=== PATIENT | male | born 1980 | race Caucasian/White ===

== ENCOUNTER 2018-04-17 06:44 | Inpatient (IN) ==
[2018-04-17] MEDS ORDERED: Bupivacaine/Epinephrine Inj 0.25% 50 ML Vial ONE (07:20)
[2018-04-17] MEDS ORDERED: Metoprolol Tartrate 25 MG Tablet PO ONE (07:30)
[2018-04-17] MEDS ORDERED: Sodium Chlor 0.9% Inj 500 ML IV.CONT ONE (07:30)
[2018-04-17] MEDS ORDERED: Chlorhexidine Gluconate 2% 1 Pack (2 Cloths) TOPICAL ONE (07:30)
[2018-04-17] MEDS ORDERED: ceFAZolin 2 GM Premix Inj 2 GM/50 ML PIGGYBACK IV.SIG ONE (08:00)
[2018-04-17] MEDS ORDERED: Neostigmine Inj 5 MG/5 ML Syringe IV.PUSH ONE (10:12)
[2018-04-17] MEDS ORDERED: Glycopyrrolate Inj 1 MG/5 ML Syringe IV.PUSH ONE (10:12)
[2018-04-17] MEDS ORDERED: Lidocaine PF 1% Inj 5 ML Syringe OTHER ONE (10:12)
[2018-04-17] MEDS ORDERED: Naloxone Inj 0.4 MG/ML Vial IV.PUSH PRN (11:39)
[2018-04-17] MEDS ORDERED: Post-op Orders (for Pharmacy) OTHER ONE (11:39)
[2018-04-17] MEDS: Ketorolac Inj 30 MG/ML (IVP) Vial IV.PUSH SCH ×3 (11:45→23:16)
--- NOTE | 2018-04-17 11:53 | P.OP ---
- Preoperative Diagnosis (1) Diverticulitis large intestine - Postoperative Diagnosis (1) Diverticulitis large intestine Date of procedure: 04/17/18 Procedure: Laparoscopic assisted diverting ileostomy Anesthesia: MERLIN Surgeon: Pierre Livingston MD Doctor Of Naprapathic Medicine: Lucille CHRISTIANSON Estimated blood loss (mL): 5 Pathology: none sent Operation and Findings: Operative findings: inflamed indurated sigmoid colon. No intraabdominal perforation. To the operating room placed in supine position. General endotracheal anesthesia was induced and the abdomen is prepped and draped in usual sterile fashion. Surgical timeout was performed to verify correct patient procedure and site. Local anesthetic was injected in skin and subcutaneous tissue and left upper abdomen and a 5 mm incision made. Laparoscope was directly inserted into the abdomen through the Optiview trocar and the end was insufflated to 15 mmHg with CO2 gas which patient tolerated well. Another 5 mm port was placed in the epigastrium and in the left midabdomen. Attention was turned to the left lower quadrant of the sigmoid colon was noted to be inflamed and indurated. There is no exudate or purulent fluid in the abdomen. I proceeded with identified the cecum and ileocecal valve approximately 10-15 cm from the ileocecal valve at a mobile portion of the ileum it was grasped with a locking grasper. Laparoscopic equipment was removed. I had a site marked previously in the right lower abdomen I created a circular skin incision dissected through subcutaneous tissue with electrocautery. The anterior rectus fascia was incised in a cruciate fashion the right, the rectus muscle divided, and posterior rectus sheath sharply incised. 2 fingers were easily able to enter the ostomy site. The previously identified portion of terminal ileum was brought up through the ostomy site and secured in place with the sophy through a small hole made in the mesentery. The ileum was then opened approximately one third across its diameter and both ends of the loop were matured in Christina fashion with 3-0 Vicryl suture. Sterile appliance was applied. Skin incision was closed with subcu 4-0 Monocryl Dermabond. Patient tolerated procedure well was excellent taken to PACU in stable condition.
[2018-04-17] MEDS ORDERED: *morphine SULFATE 10 MG/ML PERIprocedure ONLY ONE ×3 (12:10→12:33)
[2018-04-17] MEDS ORDERED: fentaNYL Citrate Inj 100 MCG/2 ML Ampul ONE (12:25)
[2018-04-17] MEDS ORDERED: *HYDROmorphone PF Inj 1 MG/ML Ampul PERIprocedural Use ONLY ONE (12:41)
--- NOTE | 2018-04-17 13:55 | P.PNWCN ---
Wound Care Nurse Consult Description: Received New ostomy teaching for RLQ Communicated with: JADYN Donahue same day surgery PACU,JADYN Pearce [address] [place] [address]. Recommendation: 1. Please empty pouch when 1/3 to 1/2 full 2. Change ileostomy appliance every 3 to 5 days or as needed if leaking or dislodged 3. Do not reinforce ostomy appliance with tape if leaking, please change ostomy appliance using 4 inch cut to fit colostomy kit available through misogram only.Please use adaptor provided in kit. 4. Please include adi with in appliance. 5. Please encourage patient to read education booklet provided in kit entitled " What to Expect After Ileostomy Surgery" 6. Patient will need home health care for additional teaching at home. Bowel Diversion Stoma - Bowel Stoma Right Lower Abdomen Stoma Diameter: 32 (~32mm) Loop Supporting Adi: Yes (100mm) Collection Device: Cut to Fit Wafer Wafer Size: 4 Inch Cut to Fit 100mm - Additional Information Additional Information: Patient is in Post anesthesia care unit, Education kit was give to nurse to be brought with patient to med surg floor.Patient is still groggy and not teachable at this moment.Stoma was visualized through transparent pouch and appears, red, round, and protruding, with [address]. Stoma measures ~ 1 1/4 inches or ~32mm in diameter. There is a 4 inch cut to fit colostomy appliance in place to accommodate 100 mm adi. Appliance has adaptor in place so that the Abdomen may be protected against pressure when resealing appliance.
[2018-04-17] MEDS: metroNIDAZOLE 500 MG Tablet PO SCH ×2 (14:24→21:07)
[2018-04-17] MEDS: Ciprofloxacin 500 MG Tablet PO SCH (21:07)
[2018-04-17] MEDS ORDERED: Melatonin 5 MG Tablet PO PRN (23:55)
[2018-04-18] MEDS: Ketorolac Inj 30 MG/ML (IVP) Vial IV.PUSH SCH ×2 (05:51→11:48)
[2018-04-18] MEDS: metroNIDAZOLE 500 MG Tablet PO SCH (05:52)
[2018-04-18 06:22] LABS: Baso % (Auto) 0.3 % (0.0-2.0); Hematocrit 38.8 % (39.0-51.0); Lymph # (Auto) 1.5 th/mm3 (1.0-4.8); Lymph % (Auto) 11.6 % (9.0-44.0); Mean Corpuscular HGB Conc 33.4 % (32.0-36.0); Mean Corpuscular Hemoglobin 29.4 pg (27.0-34.0); Mean Corpuscular Volume 87.9 fL (80.0-100.0); Mean Platelet Volume 9.3 fL (7.0-11.0); Mono # (Auto) 0.8 th/mm3 (0.0-0.9); Mono % (Auto) 6.3 % (0.0-8.0); Neut # (Auto) 10.8 th/mm3 (1.8-7.7); Neut % (Auto) 81.8 % (16.0-70.0); Platelet Count 257 th/mm3 (150-450); Red Blood Count 4.42 mil/mm3 (4.50-5.90); Red Cell Distribution Width 13.8 % (11.6-17.2); White Blood Count 13.2 th/mm3 (4.0-11.0)
[2018-04-18 08:57] VITALS: RESP 16
[2018-04-18] MEDS: Ciprofloxacin 500 MG Tablet PO SCH (10:18)
--- NOTE | 2018-04-18 11:13 | P.DCO ---
- Diagnosis (1) Ileostomy, has currently Status: Acute (2) Diverticulitis large intestine Status: Acute - Home Health Nursing Order: Medical education, Wound care and dressing changes Instructions: Please assist patient with learning how to manage the ileostomy; also will need ileostomy supplies - Case Management Consult Case Management Consult-Home Health: Yes - Certification I have seen patient Thad Bland on 04/18/18. My clinical findings support the need for the requested home health care services because: Limited ability to care for self I certify that my clinical findings support that this patient is homebound because: Post-op weakness (Underwent surgery on 17 April and needs initial assistance at home. ) Attestation/Additional Detail: I have seen the patient and recommend the orders provided. (2) Diverticulitis large intestine Qualifiers: Diverticulitis bleeding: without bleeding Diverticulitis complication: without perforation or abscess Qualified Code(s): K57.32 - Diverticulitis of large intestine without perforation or abscess without bleeding
--- NOTE | 2018-04-18 11:27 | P.PNGS ---
Subjective Patient reports: no new complaints, feels better, still having pain, pain is less, tolerating liquids well, voiding w/o difficulty, flatus (He states he feels better than before surgery with less LLQ pain; is anxious to go home. ) Physical Exam Vital signs: Vital Signs 04/17/18 12:00 04/17/18 12:15 04/17/18 12:29 Temperature 99.2 F Pulse Rate 73 74 Respiratory Rate 18 22 16 Blood Pressure 139/90 136/79 Pulse Oximetry 94 L 93 L 04/17/18 12:30 04/17/18 12:45 04/17/18 13:00 Temperature Pulse Rate 81 95 H 97 H Respiratory Rate 21 18 20 Blood Pressure 140/83 136/83 136/83 Pulse Oximetry 94 L 93 L 93 L 04/17/18 13:12 04/17/18 14:24 04/17/18 14:54 Temperature 98.3 F Pulse Rate 90 Respiratory Rate 20 18 18 Blood Pressure 136/83 Pulse Oximetry 93 L 04/17/18 16:00 04/17/18 18:58 04/17/18 20:00 Temperature 97.4 F L 97.8 F Pulse Rate 101 H 78 Respiratory Rate 17 18 20 Blood Pressure 140/76 146/66 H Pulse Oximetry 94 L 94 L 04/18/18 00:00 04/18/18 03:58 04/18/18 08:00 Temperature 97.9 F 98.3 F 97.9 F Pulse Rate 85 89 74 Respiratory Rate 20 20 16 Blood Pressure 145/85 H 146/77 H 128/70 Pulse Oximetry 94 L 93 L 95 Intake & Output 04/17/18 04/18/18 04/18/18 18:59 06:59 18:59 Intake Total 1250 / 1250 1000 / 1000 1000 / 1000 Output Total 120 / 120 Balance 1130 / 1130 1000 / 1000 1000 / 1000 Weight 102.7 kg 104.7 kg Intake: IV 1250 / 1250 1000 / 1000 1000 / 1000 LR 1000 mL Inj 1,000 ML @ 100 1000 / 1000 1000 / 1000 1000 / 1000 mls/hr IV.CONT .Q10H [facility] Rx#: [id number] Ofirmev Inj 1,000 mg In 100 ml 100 / 100 @ 400 mls/hr IV.[facility] Rx#:[id number] Ancef 2 GM Premix Inj 2 gm In 50 / 50 50 ml @ 100 mls/hr [facility] Rx#:[id number] Flagyl 500 MG Inj 100 ML @ 100 100 / 100 mls/hr IV.SIG [facility] Rx#: [id number] Output: Urine 100 / 100 Estimated Blood Loss Other: # Voids 1 Weight On Admission 102.7 kg - Routine Abdominal Exam Present: soft Comments: Post-op incisional tenderness; otherwise benign. Results - Labs 04/18/18 06:03 Laboratory Results - last 24 hr 04/18/18 06:03 WBC 13.2 H RBC 4.42 L Hgb 13.0 Hct 38.8 L MCV 87.9 MCH 29.4 MCHC 33.4 RDW 13.8 Plt Count 257 MPV 9.3 Neut % (Auto) 81.8 H Lymph % (Auto) 11.6 [place] % (Auto) 6.3 Eos % (Auto) 0.0 Baso % (Auto) 0.3 Neut # (Auto) 10.8 H Lymph # (Auto) 1.5 [place] # (Auto) 0.8 Eos # (Auto) 0.0 Baso # (Auto) 0.0 WBC Differential . Differential Comment Auto diff final Assessment and Plan - Assessment (1) Diverticulitis large intestine Code(s): K57.32 - Diverticulitis of large intestine without perforation or abscess without bleeding Status: Acute Plan: He will be discharged today and will see Dr. Livingston within the next 10 days. [facility] will be ordered for care of the ileostomy. (1) Diverticulitis large intestine Qualifiers: Diverticulitis bleeding: without bleeding Diverticulitis complication: without perforation or abscess Qualified Code(s): K57.32 - Diverticulitis of large intestine without perforation or abscess without bleeding
[2018-04-18 14:02] VITALS: BP 134/67; PULSE 97; TEMP 98.7; O2SAT 94
== END 2018-04-18 15:33 | disposition home health service (06) | DRG 331 ==
LOC: HSDI 06:44 → N07 13:49
PROVIDERS: ADMIT Surgery; ATTEND Surgery
CPT/HCPCS: 85025; 94150; 94664; J0131; J0690; J1100; J1170; J1885; J2250; J2270; J2405; J2550; J2704; J2710; J3010; J7120

== ENCOUNTER 2018-04-19 04:53 | Inpatient (IN) ==
[2018-04-19] MEDS ORDERED: Acetaminophen 325 MG Tablet PO PRN (11:45)
[2018-04-19] MEDS ORDERED: Morphine Inj 4 MG/ML Vial IV.PUSH ONE ×2 (12:15→17:30)
--- NOTE | 2018-04-19 12:42 | P.CONGI ---
History of Present Illness Consult date: 04/19/18 Requesting physician: Jamaica Quach Consult reason: hematemesis Chief complaint: upper GI bleed, intractable vomiting, stqatus post History of Present Illness: 37-year-old male status post laparoscopic ileostomy 2 days ago for indurated diverticulitis was discharged yesterday. He presented to [facility] today for nausea, vomiting and abdominal pain. He has been unable to tolerate anything by mouth. CT of the abdomen/pelvis indicate scattered air-fluid levels most suggestive of an ileus and large air-fluid level present in the stomach. Patient declined NG tube at [facility]. He reports hematemesis as well as blood in his ileostomy bag. No bowel movements. He is belching and retching. WBC 13.7, hemoglobin 13.0, hematocrit 38.9. No fevers. On exam he appears uncomfortable. His abdomen is distended. No bowel sounds are appreciated. Diffuse tenderness to palpation. Right lower quadrant colostomy bag which is empty. <Betsy Marcano - Last Filed: 04/19/18 12:42> PMFSH - History History Provided By: Patient, Family Member - Medical History Medical History: Medical History (Last Updated 04/19/18 @ 05:27 by Linda Quiroz RN) A-fib COPD (chronic obstructive pulmonary disease) Diverticulitis IBS (irritable bowel syndrome) Ileostomy in place Kidney stones PICC (peripherally inserted central catheter) in place SVT (supraventricular tachycardia) - Surgical History Surgical History: Surgical History (Last Reviewed 04/19/18 @ 05:26 by Linda Quiroz RN) H/O colonoscopy History of esophagogastroduodenoscopy (EGD) History of tonsillectomy Hx of appendectomy - Family History Family History: Family History (Last Reviewed 04/16/18 @ 13:34 by Christine Cruz RN) Mother Kidney stone Father Heart disease - Tobacco History Second Hand Smoke Exposure: No Smoking Status: Current every day smoker Tobacco Type: Cigarettes - Alcohol History How Often Do You Have a Drink Containing Alcohol: Never - Substance Use History Substance History: No History of Abuse <Betsy Marcano - Last Filed: 04/19/18 12:42> - Medical History Medical History: Medical History (Last Updated 04/19/18 @ 05:27 by Linda Quiroz, JADYN) A-fib COPD (chronic obstructive pulmonary disease) Diverticulitis IBS (irritable bowel syndrome) Ileostomy in place Kidney stones PICC (peripherally inserted central catheter) in place SVT (supraventricular tachycardia) - Surgical History Surgical History: Surgical History (Last Reviewed 04/19/18 @ 05:26 by Linda Quiroz, RN) H/O colonoscopy History of esophagogastroduodenoscopy (EGD) History of tonsillectomy Hx of appendectomy - Family History Family History: Family History (Last Reviewed 04/16/18 @ 13:34 by Christine Cruz RN) Mother Kidney stone Father Heart disease <Herve Gregg E - Last Filed: 04/19/18 20:59> Medications and Allergies Active Medications: Active Medications Acetaminophen (Tylenol) 650 mg PO Q4H PRN PRN Reason: Temp > 100.4 Pantoprazole Sodium 80 mg/ (Sodium Chloride) 100 mls @ 10 mls/hr IV.CONT Q10H [facility]EE Potassium Chloride 10 meq/ (Sodium Chloride) 1,005 mls @ 100 mls/hr IV.CONT .Q10H3M TEE Ondansetron HCl (Zofran Inj) 4 mg IV.PUSH Q6H PRN PRN Reason: NAUSEA OR VOMITING Sodium Chloride (Ns Flush) 2 ml IV.FLUSH BID TEE Sodium Chloride (Ns Flush) 2 ml IV.FLUSH PRN PRN PRN Reason: FLUSH AFTER USING IV ACCESS <Betsy Marcano C - Last Filed: 04/19/18 12:42> Active Medications: Active Medications Acetaminophen (Tylenol) 650 mg PO Q4H PRN PRN Reason: Temp > 100.4 Pantoprazole Sodium 80 mg/ (Sodium Chloride) 100 mls @ 10 mls/hr IV.CONT Q10H TEE Last Infusion: 04/19/18 19:29 Dose: Infused Potassium Chloride 10 meq/ (Sodium Chloride) 1,005 mls @ 100 mls/hr IV.CONT .Q10H3M TEE Last Admin: 04/19/18 13:05 Dose: 100 mls/hr Piperacillin/Tazobactam/Dextrose (Zosyn 3.375 Gm Premix) 3.375 gm in 50 mls @ 100 mls/hr IV.SIG Q6H TEE Last Infusion: 04/19/18 19:30 Dose: Infused Melatonin (Melatonin) 5 mg PO HS PRN PRN Reason: SLEEP Morphine Sulfate (Morphine Inj) 4 mg IV.PUSH Q4H PRN PRN Reason: PAIN SCALE 6 TO 10 Ondansetron HCl (Zofran Inj) 4 mg IV.PUSH Q6H PRN PRN Reason: NAUSEA OR VOMITING Last Admin: 04/19/18 13:05 Dose: 4 mg Sodium Chloride (Ns Flush) 2 ml IV.FLUSH BID TEE Sodium Chloride (Ns Flush) 2 ml IV.FLUSH PRN PRN PRN Reason: FLUSH AFTER USING IV ACCESS <Herve Gregg - Last Filed: 04/19/18 20:59> Allergies Allergy/AdvReac Type Severity Reaction Status Date / Time No Known Allergies Allergy Verified 04/19/18 05:23 Home Medications Medication Instructions Recorded Confirmed Type varenicline [Chantix] 0.5 mg PO BID 04/16/18 04/19/18 History pantoprazole [Protonix] 40 mg PO DAILY 04/19/18 04/19/18 History Exam Vital signs: Vital Signs 04/19/18 11:29 Temperature 97.4 F L Pulse Rate 77 Respiratory Rate 19 Blood Pressure 161/91 H Pulse Oximetry 97 <Betsy Marcano - Last Filed: 04/19/18 12:42> Vital signs: Vital Signs 04/19/18 11:29 04/19/18 16:00 Temperature 97.4 F L 97.9 F Pulse Rate 77 70 Respiratory Rate 19 16 Blood Pressure 161/91 H 163/79 H Pulse Oximetry 97 93 L Intake & Output 04/19/18 04/19/18 04/20/18 06:59 18:59 06:59 Intake Total 150 / 150 Output Total 900 / 900 200 / 200 Balance -900 / -900 -50 / -50 Weight 104.326 kg Intake: IV 150 / 150 Protonix Inj 80 MG In NS Inj 100 / 100 100 ML @ 10 mls/hr IV.CONT Q10H [facility] Rx#:[id number] Zosyn 3.375 GM Premix 3.375 gm 50 / 50 In 50 ml @ 100 mls/hr IV.SIG Q6H [facility] Rx#:[id number] Output: Stool Amount (Stoma) 200 / 200 Pre-Hospital: Right Lower 200 / 200 Abdomen Gastric Drainage 700 / 700 200 / 200 Right Nare Nasogastric Tube 700 / 700 200 / 200 Other: Date of Last Bowel Movement 04/19/18 Weight On Admission 104.326 kg <Herve Gregg - Last Filed: 04/19/18 20:59> Results - Imaging Impressions Abdomen X-Ray 04/19/18 00:00 CONCLUSION: 1. Stable diffuse mild small bowel distention most consistent with adynamic ileus versus partial distal small bowel obstruction. <Herve Gregg - Last Filed: 04/19/18 20:59> Assessment and Plan (1) Nausea & vomiting Status: Acute Code(s): R11.2 - Nausea with vomiting, unspecified (2) Acute upper gastrointestinal bleeding Status: Acute Code(s): K92.2 - Gastrointestinal hemorrhage, unspecified (3) Ileus, postoperative Status: Acute Code(s): K91.89 - Other postprocedural complications and disorders of digestive system; K56.7 - Ileus, unspecified (4) Ileostomy, has currently Status: Acute Code(s): Z93.2 - Ileostomy status - Plan 1.Nausea, vomiting and abdominal pain. Status post laparoscopic-assisted diverting ileostomy on 04/17/2018. Imaging suggestive of postoperative ileus. 2. Hematemesis. Most likely Yashira-Perez tear. Hemoglobin 13.0/hematocrit 38.9. Plan: -NG tube is strongly recommended to patient. He is declining at present but agreed to consider it. -Pantoprazole drip -N.p.o. -IV fluids -Antiemetics and analgesics per attending -Monitor H&H -Recommendations to follow Patient was seen and examined by myself and Dr. Gregg and this note is written on his behalf Betsy Marcano PA-C [phone] <Betsy Marcano - Last Filed: 04/19/18 12:42> (1) Nausea & vomiting Status: Acute Code(s): R11.2 - Nausea with vomiting, unspecified (2) Acute upper gastrointestinal bleeding Status: Acute Code(s): K92.2 - Gastrointestinal hemorrhage, unspecified (3) Ileus, postoperative Status: Acute Code(s): K91.89 - Other postprocedural complications and disorders of digestive system; K56.7 - Ileus, unspecified (4) Ileostomy, has currently Status: Acute Code(s): Z93.2 - Ileostomy status - Attending Attestation Patient seen and examined Agree with above Continue with current supportive care Monitor labs EGD if actively bleeding or after a few days seeing that he is actually postoperative day #2 <Herve Gregg E - Last Filed: 04/19/18 20:59>
[2018-04-19] MEDS: Potassium Chloride Inj 10 MEQ in Sod Chloride 0.9% Inj 1,000 ML IV.CONT SCH ×2 (13:05→21:53)
[2018-04-19] MEDS: Pantoprazole Inj 80 MG in Sodium Chlor 0.9% Inj 100 ML IV.CONT SCH ×3 (13:06→22:01)
--- NOTE | 2018-04-19 13:51 | XR ---
EXAM DATE: 04/19/2018 12:53 PM EST AGE/SEX: 37 years / Male INDICATIONS: Evaluate for ileus CLINICAL DATA: This is the patient's initial encounter. Patient reports that signs and symptoms have been present for 3 days and indicates a pain score of 8/10. MEDICAL/SURGICAL HISTORY: . Cardiovascular disease. Irritable bowel syndrome. Renal calculi Di verticulitis. . Appendectomy. colostomy COMPARISON: [facility], CT ABDOMEN & PELVIS W/O CONTRAST, 04/19/2018. . FINDINGS: Multiple loops of air-filled distended small bowel throughout the abdomen measuring up to 3.9 cm. Po ssibility of bowel gas in the colon. No gross pneumatosis or free air. Remainder of exam is unchanged . CONCLUSION: 1. Stable diffuse mild small bowel distention most consistent with adynamic ileus versus partial dis yazmin small bowel obstruction. Electronically signed by: Steven Rainey MD Board Certified Radiologist 04/19/2018 1:50 PM EST
--- NOTE | 2018-04-19 18:04 | P.HP ---
History of Present Illness Service: FHCP-hospitalist Primary Care Physician: UNKNOWN Chief Complaint: upper GI bleed History of Present Illness: 37-year-old male status post laparoscopic ileostomy 2 days ago for indurated diverticulitis was discharged yesterday. He presented to [place] ER today for nausea, vomiting and abdominal pain. He has been unable to tolerate anything by mouth. CT of the abdomen/pelvis indicate scattered air-fluid levels most suggestive of an ileus and large air-fluid level present in the stomach. Patient declined NG tube at [place]. He reports hematemesis as well as blood in his ileostomy bag. No bowel movements. He is belching and retching. WBC 13.7, hemoglobin 13.0, hematocrit 38.9. No fevers. On exam now appears more comfortable. His abdomen is distended. No bowel sounds are appreciated. Diffuse tenderness to palpation. Right lower quadrant colostomy bag which is empty. Patient did allow NG tube with large amount obtained bloody fluid. Patient also received morphine and starting to feel a little better. In review he was on Zosyn 4 times a day will continue and GI has consulted . - Diagnosis (1) Acute upper gastrointestinal bleeding (2) Nausea & vomiting (3) Diverticulitis large intestine (4) Ileus, postoperative Inpatient Certification: I certify that the inpatient services were ordered in accordance with Medicare regulations governing the order. This includes certification that hospital inpatient services are reasonable and necessary and in the case of services not specified as inpatient-only under 42 CFR 419.22(n), that they are appropriately provided as inpatient services in accordance to with the 2-midnight benchmark under 43 CFR 412.3(e) Estimated Total Length of Stay (Days): 2 Plans for Post Hospital Care: Home Review of Systems All other systems reviewed negative except as stated in [facility] - History History Provided By: Patient - Medical History Medical History: Medical History (Last Reviewed 04/19/18 @ 18:00 by Rolf Curry MD) A-fib COPD (chronic obstructive pulmonary disease) Diverticulitis IBS (irritable bowel syndrome) Ileostomy in place Kidney stones PICC (peripherally inserted central catheter) in place SVT (supraventricular tachycardia) - Surgical History Surgical History: Surgical History (Last Reviewed 04/19/18 @ 18:00 by Rolf Curry MD) H/O colonoscopy History of esophagogastroduodenoscopy (EGD) History of tonsillectomy Hx of appendectomy - Family History Family History: Family History (Last Reviewed 04/16/18 @ 13:34 by Christine Cruz RN) Mother Kidney stone Father Heart disease - Tobacco History Second Hand Smoke Exposure: Yes Tobacco Use In Past 30 Days: Yes Smoking Status: Current every day smoker Tobacco Type: Cigarettes - Alcohol History How Often Do You Have a Drink Containing Alcohol: Never - Substance Use History Substance History: No History of Abuse - Travel History Recent Travel in the USA Within the Last 8 Weeks: No Recent Travel Out of the Country Within the Last 8 Weeks: No - Immunization History Tetanus Immunization: <5 Years Hx Influenza Vaccine This Season: No Medications and Allergies Active Medications: Active Medications Acetaminophen (Tylenol) 650 mg PO Q4H PRN PRN Reason: Temp > 100.4 Pantoprazole Sodium 80 mg/ (Sodium Chloride) 100 mls @ 10 mls/hr IV.CONT Q10H PENDING [facility] TO [facility] Last Admin: 04/19/18 13:06 Dose: 10 mls/hr Potassium Chloride 10 meq/ (Sodium Chloride) 1,005 mls @ 100 mls/hr IV.CONT .Q10H3M PENDING [facility] TO [facility] Last Admin: 04/19/18 13:05 Dose: 100 mls/hr Morphine Sulfate (Morphine Inj) 4 mg IV.PUSH Q4H PRN PRN Reason: PAIN SCALE 6 TO 10 Ondansetron HCl (Zofran Inj) 4 mg IV.PUSH Q6H PRN PRN Reason: NAUSEA OR VOMITING Last Admin: 04/19/18 13:05 Dose: 4 mg Sodium Chloride (Ns Flush) 2 ml IV.FLUSH BID PENDING SALE TO [facility] Sodium Chloride (Ns Flush) 2 ml IV.FLUSH PRN PRN PRN Reason: FLUSH AFTER USING IV ACCESS Allergies Allergy/AdvReac Type Severity Reaction Status Date / Time No Known Allergies Allergy Verified 04/19/18 05:23 Home Medications Medication Instructions Recorded Confirmed Type varenicline [Chantix] 0.5 mg PO BID 04/16/18 04/19/18 History pantoprazole [Protonix] 40 mg PO DAILY 04/19/18 04/19/18 History Exam Vital signs: Vital Signs 04/19/18 11:29 04/19/18 16:00 Temperature 97.4 F L 97.9 F Pulse Rate 77 70 Respiratory Rate 19 16 Blood Pressure 161/91 H 163/79 H Pulse Oximetry 97 93 L Intake & Output 04/18/18 04/19/18 04/19/18 18:59 06:59 18:59 Output Total 900 / 900 Balance -900 / -900 Weight 104.326 kg Output: Stool Amount (Stoma) 200 / 200 Pre-Hospital: Right Lower 200 / 200 Abdomen Gastric Drainage 700 / 700 Right Nare Nasogastric Tube 700 / 700 Other: Date of Last Bowel Movement 04/19/18 Weight On Admission 104.326 kg Narrative: GENERAL: SKIN: Warm and dry. HEAD: Normocephalic. EYES: No scleral icterus. No injection or drainage. NECK: Supple, trachea midline. No JVD or lymphadenopathy. CARDIOVASCULAR: Regular rate and rhythm without murmurs, gallops, or rubs. RESPIRATORY: Breath sounds equal bilaterally. No accessory muscle use. GASTROINTESTINAL: diffuse tenderness no rebound distended MUSCULOSKELETAL: No cyanosis, or edema. BACK: Nontender without obvious deformity. No CVA tenderness. Results - Imaging Impressions Abdomen X-Ray 04/19/18 00:00 CONCLUSION: 1. Stable diffuse mild small bowel distention most consistent with adynamic ileus versus partial distal small bowel obstruction. Caprini VTE Risk Assessment Caprini VTE Risk Assessment: No/Low Risk (score <= 1) Caprini Risk Assessment Model: Point Value = 1 Point Value = 2 Point Value = 3 Point Value = 5 Age 41-60 Minor surgery BMI > 25 kg/m2 Swollen legs Varicose veins or History of unexplained or recurrent spontaneous Oral contraceptives or hormone replacement Sepsis (< 1 month) Serious lung disease, including pneumonia (< 1 month) Abnormal pulmonary function Acute myocardial infarction Congestive heart failure (< 1 month) History of inflammatory bowel disease Medical patient at bed rest Age 61-74 Arthroscopic surgery Major open surgery (> 45 min) Laparoscopic surgery (> 45 min) Malignancy Confined to bed (> 72 hours) Immobilizing plaster cast Central venous access Age >= 75 History of VTE Family history of VTE Factor V Leiden Prothrombin [id number] Lupus anticoagulant Anticardiolipin antibodies Elevated serum homocysteine Heparin-induced thrombocytopenia Other congenital or acquired thrombophilia Stroke (< 1 month) Elective arthroplasty Hip, pelvis, or leg fracture Acute spinal cord injury (< 1 month) Prophylaxis Regimen: Total Risk Factor Score Risk Level Prophylaxis Regimen 0-1 Low Early ambulation 2 Moderate Order ONE of the following: *Sequential Compression Device (SCD) *Heparin 5000 units SQ BID 3-4 Higher Order ONE of the following medications: *Heparin 5000 units SQ TID *Enoxaparin/Lovenox 40 mg SQ daily (WT < 150 kg, CrCl > 30 mL/min) *Enoxaparin/Lovenox 30 mg SQ daily (WT < 150 kg, CrCl > 10-29 mL/min) *Enoxaparin/Lovenox 30 mg SQ BID (WT < 150 kg, CrCl > 30 mL/min) AND/OR *Sequential Compression Device (SCD) 5 or more Highest Order ONE of the following medications: *Heparin 5000 units SQ TID (Preferred with Epidurals) *Enoxaparin/Lovenox 40 mg SQ daily (WT < 150 kg, CrCl > 30 mL/min) *Enoxaparin/Lovenox 30 mg SQ daily (WT < 150 kg, CrCl > 10-29 mL/min) *Enoxaparin/Lovenox 30 mg SQ BID (WT < 150 kg, CrCl > 30 mL/min) AND *Sequential Compression Device (SCD) Assessment and Plan - Assessment (1) Acute upper gastrointestinal bleeding Code(s): K92.2 - Gastrointestinal hemorrhage, unspecified Status: Acute Plan: appears to have UGI bleed ,NG tube placed plan as per GI protonix drip ,follow cbc and add IV fluid (2) Nausea & vomiting Code(s): R11.2 - Nausea with vomiting, unspecified Status: Acute Plan: zofran prn (3) Diverticulitis large intestine Code(s): K57.32 - Diverticulitis of large intestine without perforation or abscess without bleeding Status: Acute Plan: restart zosyn Surgery has been notified (4) Ileus, postoperative Code(s): K91.89 - Other postprocedural complications and disorders of digestive system; K56.7 - Ileus, unspecified Status: Acute Plan: NG tube await surgery to evaluate - Plan further plan as case develops Code Status: full Discussed Condition With: patient (3) Diverticulitis large intestine Qualifiers: Diverticulitis bleeding: without bleeding Diverticulitis complication: without perforation or abscess Qualified Code(s): K57.32 - Diverticulitis of large intestine without perforation or abscess without bleeding
[2018-04-19] MEDS: Piperacil/Tazo 3.375 GM Premix 3.375 GM/50 ML PIGGYBACK IV.SIG SCH (18:54)
[2018-04-19] MEDS: Melatonin 5 MG Tablet PO PRN (21:32)
[2018-04-19] MEDS: Morphine Inj 4 MG/ML Vial IV.PUSH PRN (21:38)
[2018-04-20] MEDS: Piperacil/Tazo 3.375 GM Premix 3.375 GM/50 ML PIGGYBACK IV.SIG SCH ×5 (00:15→23:53)
[2018-04-20] MEDS: Morphine Inj 4 MG/ML Vial IV.PUSH PRN ×5 (01:17→21:44)
[2018-04-20] MEDS: Potassium Chloride Inj 10 MEQ in Sod Chloride 0.9% Inj 1,000 ML IV.CONT SCH ×4 (03:07→17:26)
[2018-04-20 05:55] LABS: Baso # (Auto) 0.1 th/mm3 (0.0-0.2); Eos # (Auto) 0.2 th/mm3 (0.0-0.4); Eos % (Auto) 1.8 % (0.0-4.0); Hematocrit 39.8 % (39.0-51.0); Hemoglobin 13.2 gm/dL (13.0-17.0); Lymph # (Auto) 2.2 th/mm3 (1.0-4.8); Lymph % (Auto) 17.1 % (9.0-44.0); Mean Corpuscular Hemoglobin 29.5 pg (27.0-34.0); Mean Corpuscular Volume 89.5 fL (80.0-100.0); Mean Platelet Volume 9.4 fL (7.0-11.0); Mono # (Auto) 1.2 th/mm3 (0.0-0.9); Mono % (Auto) 9.4 % (0.0-8.0); Neut % (Auto) 70.7 % (16.0-70.0); Platelet Count 285 th/mm3 (150-450); Red Blood Count 4.45 mil/mm3 (4.50-5.90); Red Cell Distribution Width 13.9 % (11.6-17.2); White Blood Count 12.7 th/mm3 (4.0-11.0)
[2018-04-20 06:22] LABS: Albumin 3.4 g/dL (3.4-5.0); Anion Gap 10 meq/L (5-15); Aspartate Aminotransferase 21 U/L (15-37); Blood Urea Nitrogen 16 mg/dL (7-18); Calcium 8.3 mg/dL (8.5-10.1); Carbon Dioxide 25.5 meq/L (21.0-32.0); Chloride 104 meq/L (98-107); Glomerular Filtration Rate 77 mL/min (>89); Glucose,Random 97 mg/dL (74-106); Potassium 3.6 meq/L (3.5-5.1); Sodium 139 meq/L (136-145)
[2018-04-20 06:24] LABS: Alanine Aminotransferase 24 U/L (12-78); Alkaline Phosphatase 79 U/L (45-117); Total Protein 6.7 g/dL (6.4-8.2)
[2018-04-20] MEDS: Pantoprazole Inj 80 MG in Sodium Chlor 0.9% Inj 100 ML IV.CONT SCH ×4 (07:03→18:38)
--- NOTE | 2018-04-20 08:53 | P.PNIM ---
Subjective Interval history: Pt had NGT placed yesterday and had about 800cc of coffee- ground appearing fluid yesterday afternoon Nursing staff reports 200cc out overnight from NGT H/H is stable Pt complains of pain related to the NGT and wants it removed He is quite anxious this morning Feels that his pain is slightly less and that his abdomen is somewhat less distended Pt with some nausea and retching while in was in the room examining the pt with the nurse Physical Exam Vital signs: Last Vital Signs Temp 98 F 04/20/18 00:00 Pulse 93 H 04/20/18 00:00 Resp 20 04/20/18 00:00 BP 157/88 H 04/20/18 00:00 Pulse Ox 93 L 04/20/18 00:00 Narrative: General: NAD, AAOx3 Chest: CTA Cardiac: Regular Abd: Minimal BS, soft mildly distended, ileostomy with some dark liquid noted Ext: No edema Results Labs CBC & Chem 7: 04/23/18 10:05 04/23/18 05:03 Imaging Abdomen X-Ray 04/19/18 00:00 CONCLUSION: 1. Stable diffuse mild small bowel distention most consistent with adynamic ileus versus partial distal small bowel obstruction. CT Abd/pelvis (04/19/18) CONCLUSION: 1. I do not see inflammatory changes in the abdomen. There is mild diverticulosis coli sigmoid colon 2. Colostomy in the right lower quadrant 3. Scattered air-fluid levels most suggestive of an ileus. 4. Large air-fluid level present in the stomach Assessment and Plan Assessment (1) Acute upper gastrointestinal bleeding: Code(s): K92.2 - Gastrointestinal hemorrhage, unspecified Status: Inactive (2) Nausea & vomiting: Code(s): R11.2 - Nausea with vomiting, unspecified Status: Acute (3) Diverticulitis large intestine: Code(s): K57.32 - Diverticulitis of large intestine without perforation or abscess without bleeding Status: Acute (4) Ileus, postoperative: Code(s): K91.89 - Other postprocedural complications and disorders of digestive system; K56.7 - Ileus, unspecified Status: Acute Plan UGI bleed/?Yashira-Perez tear Nausea/vomiting, post-op ileus s/p Lap diverting ileostomy on 04/17/18 - Pt is a 37 y/o male that recently underwent laparoscopic diverting ileostomy on 04/17/18 for indurated diverticulitis. He was discharged on 04/18/18 and was doing well initially. Then on 04/19/18 he presented to [place] ER for nausea, vomiting and abdominal pain. He reported hematemesis as well as blood in his ileostomy bag. He has been unable to tolerate anything by mouth. No bowel movements. He was belching and retching. - CT Abdomen/pelvis (04/19/18) 1. I do not see inflammatory changes in the abdomen. There is mild diverticulosis coli sigmoid colon 2. Colostomy in the right lower quadrant 3. Scattered air-fluid levels most suggestive of an ileus. 4. Large air-fluid level present in the stomach - Abdomen X-Ray (04/19/18) 1. Stable diffuse mild small bowel distention most consistent with adynamic ileus versus partial distal small bowel obstruction. - GI consulted - GS consulted - Patient initially declined NG tube at [place] but this was able to be placed after transfer to [facility]. Pt initially had out about 800cc of dark coffeground fluid per nursing staff. - Overnight on 04/20 he had out about 200cc of dark fluid and some fluid noted in ileostomy - H/H is stable currently - Pt still having nausea and retching today and appears very anxious and wanting to pull out NGT - Chloraseptic spray ordered - Repeat KUB is pending - Ativan 0.5mg Q6H PRN for anxiety - Discussed minimizing narcotics - If repeat KUB without evidence of obstruction could consider a dose of Relistor - Discussed with the pt and nurse attempting to see if pt can tolerating NGT clamping to ambulate today - Will discuss the case further with GI and GS today - Recheck labs in AM - Supportive care Attending Attestation The exam, history, and the medical decision-making described in the above note were completed with the assistance of the mid-level provider. I reviewed and agree with the findings presented. I attest that I had a [id number] encounter with the patient on the same day, and personally performed and documented my assessment and findings in the medical record. Patient examined. Assessment and plan formulated with Jamaica Quach PA-C. I agree with the above. Progress Note: Quality VTE Deep Vein Thrombosis/Pulmonary Embolism Present on Admission: No _ (1) Nausea & vomiting Qualifiers: Vomiting Intractability: Vomiting type: (2) Diverticulitis large intestine Qualifiers: Diverticulitis bleeding: without bleeding Diverticulitis complication: without perforation or abscess Qualified Code(s): K57.32 - Diverticulitis of large intestine without perforation or abscess without bleeding
[2018-04-20] MEDS ORDERED: Phenol 1.4% 180 ML Spray Bottle OROPHARYNG STA (09:03)
[2018-04-20] MEDS: Phenol 1.4% 180 ML Spray Bottle OROPHARYNG PRN ×2 (09:33→15:37)
--- NOTE | 2018-04-20 10:55 | XR ---
EXAM DATE: 04/20/2018 10:49 AM EST AGE/SEX: 37 years / Male INDICATIONS: Vomiting, abdomen pain. CLINICAL DATA: This is the patient's subsequent encounter. Patient reports that signs and symptoms h ave been present for 4 - 6 days and indicates a pain score of 9/10. MEDICAL/SURGICAL HISTORY: . Diverticulitis. Irritable bowel syndrome. Renal calculi. Appendect luis armando. Colostomy. [place]PAR[place]: [facility] [place] 1V KUB, 04/19/2018. [facility], CT ABDOMEN & PELVIS W/O CONTRAST, 04/19/2018. . FINDINGS: There appears to be an ostomy site in the left lower quadrant. There continues to be dilated small b owel measuring up to 4 cm. There is an NG tube in place with its tip just beyond the EG junction. Hector e air is not seen. CONCLUSION: Persistent dilated small bowel. Ileus or obstruction could've this appearance. Electronically signed by: Sanjay Daley MD Board Certified Radiologist 04/20/2018 10:54 AM EST
--- NOTE | 2018-04-20 11:55 | P.PNWCN ---
Wound Care Nurse Consult Description: Patient seen today for new ostomy teaching and new ileostomy assessment. Consult was placed before previous discharge on 04/18 from Doctor Miki. Patient was admitted again on 04/19. Communicated with: JADYN Goldstein [address] [place] [address] Recommendation: 1. Please empty pouch when 1/3 to 1/2 full. 2. Change ileostomy appliance every 3 to 5 days or as needed if leaking or dislodged 3. If appliance is leaking, please apply new two piece 4 inch cut to fit appliance in place. Do not reinforce leaking appliance with tape. 4. Please include adi within ostomy appliance. 5. please monitor stoma for output and appearance. Bowel Diversion Stoma - Bowel Stoma Right Lower Abdomen Stoma Edema: No Stoma Diameter: 32 (~32mm) Stoma Appearance: Dark Red, Protruding, Round Loop Supporting Adi: Yes Collection Device: Two-piece, Cut to Fit Wafer Drainage Description: Liquid, Brown Wafer Size: 4 Inch Cut to Fit 100mm - Additional Information Additional Information: Patient seen on for ileostomy care, teaching and assessment. Patient is laying in bed with NG tube in place. Patient is drowsy, per nurse, patient does have pain medication ordered, but was given Ativan around 0900. Ileostomy stoma was visualized through transparent pouch, and presents as dark red in color, round and protruding with [address]. There is a small amount of brown , liquid output in pouch. Pouch and wafer are dry and intact. Patient is not ready for ostomy teaching at this time. will follow up with patient tomorrow.
--- NOTE | 2018-04-20 12:32 | P.CONGS ---
[facility] Gen Surgery Consult Note Consult date: 04/20/18 Narrative: Mr. Bland underwent diverting loop ileostomy due to 2 mth h/o persistent sigmoid diverticulitis on Friday last week, and discharged home Friday. Soon after getting home he developed abdominal bloating and nausea and then multiple episodes of emesis, some with coffee grounds. He was admitted yesterday and CT a/p showed air fluid levels in the small bowel. He still feels poorly. NGT put out 1100cc since admission. He denies significant abdominal pain. The ileostomy is putting out thin liquid. Review of Systems All other systems reviewed negative except as stated in [facility] - History History Provided By: Patient - Medical History Medical History: Medical History (Last Reviewed 04/19/18 @ 18:00 by Rolf Curry MD) A-fib COPD (chronic obstructive pulmonary disease) Diverticulitis IBS (irritable bowel syndrome) Ileostomy in place Kidney stones PICC (peripherally inserted central catheter) in place SVT (supraventricular tachycardia) - Surgical History Surgical History: Surgical History (Last Reviewed 04/19/18 @ 18:00 by Rolf Curry MD) H/O colonoscopy History of esophagogastroduodenoscopy (EGD) History of tonsillectomy Hx of appendectomy - Family History Family History: Family History (Last Reviewed 04/16/18 @ 13:34 by Christine Cruz RN) Mother Kidney stone Father Heart disease - Tobacco History Second Hand Smoke Exposure: Yes Tobacco Use In Past 30 Days: Yes Smoking Status: Current every day smoker Tobacco Type: Cigarettes - Alcohol History How Often Do You Have a Drink Containing Alcohol: Never - Substance Use History Substance History: No History of Abuse - Travel History Recent Travel in the [place] Within the Last 8 Weeks: No Recent Travel Out of the Country Within the Last 8 Weeks: No - Immunization History Tetanus Immunization: <5 Years Hx Influenza Vaccine This Season: No Medications and Allergies Active Medications: Active Medications Acetaminophen (Tylenol) 650 mg PO Q4H PRN PRN Reason: Temp > 100.4 Pantoprazole Sodium 80 mg/ (Sodium Chloride) 100 mls @ 10 mls/hr IV.CONT Q10H [facility] Last Admin: 04/20/18 07:03 Dose: 10 mls/hr Potassium Chloride 10 meq/ (Sodium Chloride) 1,005 mls @ 100 mls/hr IV.CONT .Q10H3M [facility] Last Admin: 04/20/18 03:07 Dose: 100 mls/hr Piperacillin/Tazobactam/Dextrose (Zosyn 3.375 Gm Premix) 3.375 gm in 50 mls @ 100 mls/hr IV.SIG Q6H [facility] Last Infusion: 04/20/18 05:30 Dose: Infused Lorazepam (Ativan Inj) 0.5 mg IV.PUSH Q6H PRN PRN Reason: ANXIETY Melatonin (Melatonin) 5 mg PO HS PRN PRN Reason: SLEEP Last Admin: 04/19/18 21:32 Dose: 5 mg Morphine Sulfate (Morphine Inj) 4 mg IV.PUSH Q4H PRN PRN Reason: PAIN SCALE 6 TO 10 Last Admin: 04/20/18 10:45 Dose: 4 mg Ondansetron HCl (Zofran Inj) 4 mg IV.PUSH Q6H PRN PRN Reason: NAUSEA OR VOMITING Last Admin: 04/20/18 09:01 Dose: 4 mg Sodium Chloride (Ns Flush) 2 ml IV.FLUSH BID [facility] Last Admin: 04/20/18 08:58 Dose: Not Given Sodium Chloride (Ns Flush) 2 ml IV.FLUSH PRN PRN PRN Reason: FLUSH AFTER USING IV ACCESS Throat Lozenges (Chloraseptic [place]) 2 spray OROPHARYNG Q2H PRN PRN Reason: SORE THROAT Last Admin: 04/20/18 09:33 Dose: 2 spray Allergies Allergy/AdvReac Type Severity Reaction Status Date / Time No Known Allergies Allergy Verified 04/19/18 05:23 Home Medications Medication Instructions Recorded Confirmed Type varenicline [Chantix] 0.5 mg PO BID 04/16/18 04/19/18 History pantoprazole [Protonix] 40 mg PO DAILY 04/19/18 04/19/18 History Exam Vital signs: Vital Signs 04/19/18 16:00 04/19/18 20:00 04/20/18 00:00 Temperature 97.9 F 98.2 F 98 F Pulse Rate 70 86 93 H Respiratory Rate 16 22 20 Blood Pressure 163/79 H 140/91 H 157/88 H Pulse Oximetry 93 L 95 93 L Intake & Output 04/19/18 04/20/18 04/20/18 18:59 06:59 18:59 Intake Total 1255 / 1255 100 / 100 Output Total 900 / 900 825 / 825 400 / 400 Balance -900 / -900 430 / 430 -300 / -300 Weight 104.326 kg 102.8 kg Intake: IV 1255 / 1255 100 / 100 Protonix Inj 80 MG In NS Inj 100 / 100 100 / 100 100 ML @ 10 mls/hr IV.CONT Q10H [facility] Rx#:[id number] KCl Inj 10 MEQ In NS Inj 1,000 1005 / 1005 ML @ 100 mls/hr IV.CONT .Q10H3M [facility] Rx#:[id number] Zosyn 3.375 GM Premix 3.375 gm 150 / 150 In 50 ml @ 100 mls/hr IV.SIG Q6H [facility] Rx#:[id number] Oral 0 / 0 Output: Urine 350 / 350 400 / 400 Stool Amount (Stoma) 200 / 200 75 / 75 Pre-Hospital: Right Lower 200 / 200 75 / 75 Abdomen Gastric Drainage 700 / 700 400 / 400 Right Nare Nasogastric Tube 700 / 700 400 / 400 Other: Date of Last Bowel Movement 04/19/18 04/20/18 Weight On Admission 104.326 kg Results - Labs 04/20/18 04:49 04/20/18 04:49 Laboratory Results - last 24 hr 04/20/18 04/20/18 04:49 04:49 WBC 12.7 H RBC 4.45 L Hgb 13.2 Hct 39.8 MCV 89.5 MCH 29.5 MCHC 33.0 RDW 13.9 Plt Count 285 MPV 9.4 Neut % (Auto) 70.7 H Lymph % (Auto) 17.1 [place] % (Auto) 9.4 H Eos % (Auto) 1.8 Baso % (Auto) 1.0 Neut # (Auto) 9.0 H Lymph # (Auto) 2.2 [place] # (Auto) 1.2 H Eos # (Auto) 0.2 Baso # (Auto) 0.1 WBC Differential . Differential Comment Auto diff final Sodium 139 Potassium 3.6 Chloride 104 Carbon Dioxide 25.5 Anion Gap 10 BUN 16 Creatinine 1.08 Estimated GFR 77 L Random Glucose 97 Calcium 8.3 L Total Bilirubin 0.4 AST 21 ALT 24 Alkaline Phosphatase 79 Total Protein 6.7 Albumin 3.4 - Imaging Imaging: ITS Impressions Abdomen X-Ray 04/20/18 00:00 CONCLUSION: Persistent dilated small bowel. Ileus or obstruction could've this appearance. CT scan - abdomen: report reviewed, image reviewed CT scan - pelvis: report reviewed, image reviewed Assessment and Plan - Assessment (1) Ileostomy, has currently Code(s): Z93.2 - Ileostomy status Status: Acute (2) Ileus, postoperative Code(s): K91.89 - Other postprocedural complications and disorders of digestive system; K56.7 - Ileus, unspecified Status: Acute - Plan Likely post op ileus- continue supportive care. Cont NGT decompression. Start reglan. Will follow along.
--- NOTE | 2018-04-20 19:59 | CT ---
EXAM DATE: 04/20/2018 7:44 PM EST AGE/SEX: 37 years / Male INDICATIONS: Nausea and vomiting. CLINICAL DATA: This is the patient's initial encounter. Patient reports that signs and symptoms have been present for 1 day and indicates a pain score of 5/10. MEDICAL/SURGICAL HISTORY: Diverticulitis. Renal calculi. Appendectomy. RADIATION DOSE: 16.72 CTDI (mGy) COMPARISON: [facility], CT ABDOMEN & PELVIS W/O CONTRAST, 04/19/2018. [facility], CT ABDOMEN & PELVIS W/O CO NTRAST, 03/17/2018. . TECHNIQUE: Multiple contiguous axial images were obtained through the abdomen. Images were obtained using multiple row detector helical technique. Using automated exposure control and adjustment of the mA and/or kV according to patient size, radiation dose was kept as low as reasonably achievable to o btain optimal diagnostic quality images. DICOM format image data is available electronically for rev iew and comparison. FINDINGS: Lower Lungs: Bibasilar atelectatic changes are noted. Liver: The liver demonstrates diffuse decreased attenuation consistent with fatty infiltration. No fo bobby mass is noted. No biliary ductal dilatation is noted. The gallbladder is unremarkable. Spleen: Homogeneous density without enlargement. Pancreas: Unremarkable without mass or calcification. Kidneys: Normal in size and shape. No evidence of mass or hydronephrosis. Adrenal Glands: Unremarkable. Aorta: The aorta and proximal iliac vessels are grossly unremarkable without aneurysmal dilation. Bowel/Mesentery: Multiple fluid filled dilated loops of small bowel are noted suggestive of small gurjit wel obstruction or ileus. Clinical correlation is recommended. Uncomplicated colonic diverticulosis i s noted. No acute diverticulitis is noted. Right lower quadrant ileostomy is noted. Some ascites is n oted within the pelvis. Abdominal Wall: Intact. Retroperitoneum: No evidence of adenopathy in the retrocrural, para-aortic, or deep pelvic regions. Bladder: Contours are smooth. Reproductive Organs: No abnormal masses or calcifications seen. Inguinal: The inguinal region is unremarkable without evidence of adenopathy. Bony Structures: Degenerative changes and scoliosis of the thoracolumbar spine are noted. CONCLUSION: 1. Multiple fluid filled dilated loops of small bowel are noted suggestive of small bowel obstructio n or ileus. Clinical correlation is recommended. 2. Some ascites is noted within the pelvis. 3. Uncomplicated colonic diverticulosis. 4. Fatty infiltration of the liver. 5. Degenerative changes and scoliosis of the thoracolumbar spine. 6. Bibasilar atelectatic changes. Electronically signed by: Newton Garza MD Board Certified Radiologist 04/20/2018 7:58 PM EST
[2018-04-21] MEDS: Pantoprazole Inj 80 MG in Sodium Chlor 0.9% Inj 100 ML IV.CONT SCH ×4 (04:28→23:27)
[2018-04-21] MEDS: Potassium Chloride Inj 10 MEQ in Sod Chloride 0.9% Inj 1,000 ML IV.CONT SCH ×3 (04:46→15:53)
[2018-04-21] MEDS: Piperacil/Tazo 3.375 GM Premix 3.375 GM/50 ML PIGGYBACK IV.SIG SCH ×4 (05:29→23:10)
[2018-04-21 07:02] LABS: Baso # (Auto) 0.1 th/mm3 (0.0-0.2); Baso % (Auto) 0.8 % (0.0-2.0); Eos # (Auto) 0.3 th/mm3 (0.0-0.4); Eos % (Auto) 2.3 % (0.0-4.0); Hematocrit 40.5 % (39.0-51.0); Hemoglobin 13.4 gm/dL (13.0-17.0); Lymph # (Auto) 1.7 th/mm3 (1.0-4.8); Lymph % (Auto) 13.4 % (9.0-44.0); Mean Corpuscular HGB Conc 33.1 % (32.0-36.0); Mean Corpuscular Hemoglobin 29.1 pg (27.0-34.0); Mean Corpuscular Volume 87.8 fL (80.0-100.0); Mean Platelet Volume 9.5 fL (7.0-11.0); Mono % (Auto) 7.9 % (0.0-8.0); Neut # (Auto) 9.5 th/mm3 (1.8-7.7); Neut % (Auto) 75.6 % (16.0-70.0); Platelet Count 287 th/mm3 (150-450); Red Blood Count 4.62 mil/mm3 (4.50-5.90); Red Cell Distribution Width 13.7 % (11.6-17.2); White Blood Count 12.6 th/mm3 (4.0-11.0)
[2018-04-21 07:17] LABS: Calcium 8.7 mg/dL (8.5-10.1); Carbon Dioxide 26.8 meq/L (21.0-32.0); Potassium 3.7 meq/L (3.5-5.1)
--- NOTE | 2018-04-21 10:27 | P.PNIM ---
Subjective Interval history: Patient is feeling much better today He states that he has had to empty his ostomy bag twice since last night but still without over 1000cc of output from NGT documented in the EHR overnight No further nausea or dry heaving Physical Exam Vital signs: Last Vital Signs Temp 98.4 F 04/21/18 09:18 Pulse 97 H 04/21/18 09:18 Resp 18 04/21/18 09:18 BP 145/82 H 04/21/18 09:18 Pulse Ox 95 04/21/18 09:18 Narrative: General: NAD, AAOx3 Chest: CTA Cardiac: Regular Abd: Absent BS, soft mildly distended, ileostomy with some green liquid noted Ext: No edema Results Labs CBC & Chem 7: 04/23/18 10:05 04/23/18 05:03 Imaging Abdomen X-Ray 04/19/18 00:00 CONCLUSION: 1. Stable diffuse mild small bowel distention most consistent with adynamic ileus versus partial distal small bowel obstruction. Abdomen X-Ray 04/20/18 00:00 CONCLUSION: Persistent dilated small bowel. Ileus or obstruction could've this appearance. Abdomen/Pelvis CT 04/20/18 17:16 CONCLUSION: 1. Multiple fluid filled dilated loops of small bowel are noted suggestive of small bowel obstruction or ileus. Clinical correlation is recommended. 2. Some ascites is noted within the pelvis. 3. Uncomplicated colonic diverticulosis. 4. Fatty infiltration of the liver. 5. Degenerative changes and scoliosis of the thoracolumbar spine. 6. Bibasilar atelectatic changes. Assessment and Plan Assessment (1) Ileostomy, has currently: Code(s): Z93.2 - Ileostomy status Status: Acute (2) Ileus, postoperative: Code(s): K91.89 - Other postprocedural complications and disorders of digestive system; K56.7 - Ileus, unspecified Status: Acute Plan UGI bleed/?Yashira-Perez tear Nausea/vomiting, post-op ileus s/p Lap diverting ileostomy on 04/17/18 - Pt is a 37 y/o male that recently underwent laparoscopic diverting ileostomy on 04/17/18 for indurated diverticulitis. He was discharged on 04/18/18 and was doing well initially. Then on 04/19/18 he presented to [facility] for nausea, vomiting and abdominal pain. He reported hematemesis as well as blood in his ileostomy bag. He has been unable to tolerate anything by mouth. No bowel movements. He was belching and retching. - CT Abdomen/pelvis (04/19/18) 1. I do not see inflammatory changes in the abdomen. There is mild diverticulosis coli sigmoid colon 2. Colostomy in the right lower quadrant 3. Scattered air-fluid levels most suggestive of an ileus. 4. Large air-fluid level present in the stomach - Abdomen X-Ray (04/19/18) 1. Stable diffuse mild small bowel distention most consistent with adynamic ileus versus partial distal small bowel obstruction. - GI consulted - GS consulted - Patient initially declined NG tube at [facility] but this was able to be placed after transfer to [facility]. Pt initially had out about 800cc of dark coffeground fluid per nursing staff. - Overnight on 04/20 he had out about 200cc of dark fluid and some fluid noted in ileostomy - H/H is stable currently - Chloraseptic spray PRN - Abdomen X-Ray (04/20/18) -->Persistent dilated small bowel. Ileus or obstruction could've this appearance. - Abdomen/Pelvis CT (04/20/18) --> 1. Multiple fluid filled dilated loops of small bowel are noted suggestive of small bowel obstruction or ileus. Clinical correlation is recommended. 2. Some ascites is noted within the pelvis. 3. Uncomplicated colonic diverticulosis. 4. Fatty infiltration of the liver. 5. Degenerative changes and scoliosis of the thoracolumbar spine. 6. Bibasilar atelectatic changes. - Ativan 0.5mg Q6H PRN for anxiety - Discussed minimizing narcotics - Pt symptomatically improved today but still with quite a but of output from the NGT. Will discuss the case further with Dr. Livingston before clamping the NGT. - Supportive care Attending Attestation The exam, history, and the medical decision-making described in the above note were completed with the assistance of the mid-level provider. I reviewed and agree with the findings presented. I attest that I had a [id number] encounter with the patient on the same day, and personally performed and documented my assessment and findings in the medical record. Patient examined. Assessment and plan formulated with Jamaica Quach PA-C. I agree with the above. Progress Note: Quality VTE Deep Vein Thrombosis/Pulmonary Embolism Present on Admission: No
--- NOTE | 2018-04-21 15:16 | P.PNGI ---
Subjective Interval history: Patient awake and alert NG tube to low intermittent wall suction Nursing report 1100 cc output since 7 AM Patient denies abdominal pain Requests NG be removed states feels hungry Ostomy productive of large amounts of dark colored thin liquid--estimated 300 at this time and has been emptied 3 times Physical Exam Vital signs: Vital Signs 04/20/18 16:00 04/20/18 20:00 04/21/18 00:00 Temperature 99.0 F 98.1 F 97.9 F Pulse Rate 83 73 84 Respiratory Rate 21 22 20 Blood Pressure 140/77 146/83 H 139/83 Pulse Oximetry 96 95 96 04/21/18 09:18 04/21/18 12:44 Temperature 98.4 F 98.4 F Pulse Rate 97 H 94 H Respiratory Rate 18 18 Blood Pressure 145/82 H 151/82 H Pulse Oximetry 95 95 Intake & Output 04/20/18 04/21/18 04/21/18 18:59 06:59 18:59 Intake Total 1305 / 1305 200 / 200 145.2 / 145.2 Output Total 2300 / 2300 5200 / 5200 1800 / 1800 Balance -995 / -995 -5000 / -5000 -1654.8 / -1654.8 Weight 102.8 kg Intake: IV 1305 / 1305 200 / 200 145.2 / 145.2 Protonix Inj 80 MG In NS Inj 200 / 200 100 / 100 95.2 / 95.2 100 ML @ 10 mls/hr IV.CONT Q10H TEE Rx#:[id number] KCl Inj 10 MEQ In NS Inj 1,000 1005 / 1005 ML @ 100 mls/hr IV.CONT .Q10H3M TEE Rx#:[id number] Zosyn 3.375 GM Premix 3.375 gm 100 / 100 100 / 100 50 / 50 In 50 ml @ 100 mls/hr IV.SIG Q6H TEE Rx#:[id number] Oral 0 / 0 Output: Urine 1000 / 1000 200 / 200 Stool Amount (Stoma) 50 / 50 800 / 800 Pre-Hospital: Right Lower 800 / 800 Abdomen Right Lower Abdomen 50 / 50 Gastric Drainage 1250 / 1250 5000 / 5000 1000 / 1000 Right Nare Nasogastric Tube 1250 / 1250 5000 / 5000 1000 / 1000 Other: # Voids 2 Date of Last Bowel Movement 04/20/18 04/20/1819 - Constitutional no acute distress, cooperative - Routine HEENT Exam Head: Present: normocephalic ENT: Present: mucous membranes moist - Routine Neck Exam Present: supple - Routine Respiratory Exam Present: CTA bilaterally. Absent: accessory muscle use - Routine Cardiovascular Exam Present: RRR - Routine Abdominal Exam Present: soft, normoactive bowel sounds, ostomy. Absent: tenderness - Routine Extremities Exam Absent: edema - Routine Skin Exam Present: dry, warm. Absent: pallor - Routine Neurological Exam Present: alert, oriented X3 Results - Labs CBC & Chem 7: 04/21/18 05:41 04/21/18 05:41 Laboratory Results - last 24 hr 04/21/18 04/21/18 05:41 05:41 WBC 12.6 H RBC 4.62 Hgb 13.4 Hct 40.5 MCV 87.8 MCH 29.1 MCHC 33.1 RDW 13.7 Plt Count 287 MPV 9.5 Neut % (Auto) 75.6 H Lymph % (Auto) 13.4 Josephine % (Auto) 7.9 Eos % (Auto) 2.3 Baso % (Auto) 0.8 Neut # (Auto) 9.5 H Lymph # (Auto) 1.7 Josephine # (Auto) 1.0 H Eos # (Auto) 0.3 Baso # (Auto) 0.1 WBC Differential . Differential Comment Auto diff final Sodium 138 Potassium 3.7 Chloride 103 Carbon Dioxide 26.8 Anion Gap 8 BUN 18 Creatinine 1.18 Estimated GFR 69 L Random Glucose 90 Calcium 8.7 - Imaging Impressions Abdomen/Pelvis CT 04/20/18 17:16 CONCLUSION: 1. Multiple fluid filled dilated loops of small bowel are noted suggestive of small bowel obstruction or ileus. Clinical correlation is recommended. 2. Some ascites is noted within the pelvis. 3. Uncomplicated colonic diverticulosis. 4. Fatty infiltration of the liver. 5. Degenerative changes and scoliosis of the thoracolumbar spine. 6. Bibasilar atelectatic changes. Assessment and Plan (1) Nausea & vomiting Status: Acute Code(s): R11.2 - Nausea with vomiting, unspecified (2) Acute upper gastrointestinal bleeding Status: Inactive Code(s): K92.2 - Gastrointestinal hemorrhage, unspecified (3) Ileus, postoperative Status: Acute Code(s): K91.89 - Other postprocedural complications and disorders of digestive system; K56.7 - Ileus, unspecified (4) Ileostomy, has currently Status: Acute Code(s): Z93.2 - Ileostomy status - Plan 1.Nausea, vomiting and abdominal pain. Status post laparoscopic-assisted diverting ileostomy on 04/17/2018. Imaging suggestive of postoperative ileus. 2. Hematemesis. Most likely Yashira-Perez tear. Hemoglobin 13.0/hematocrit 38.9. 04/21/2018 Post laparoscopic diverting ileostomy on 04/17/2018. Hematemesis No further reports of nausea vomiting. Patient denies any noted bleeding No hematemesis as per bedside nurse. Hemoglobin 13.4 hematocrit 40.5 WBC 12.6 stable 04/20/2018 CT abdomen and pelvis reveal the followin. Multiple fluid filled dilated loops of small bowel are noted suggestive of small bowel obstruction or ileus. Clinical correlation is recommended. 2. Some ascites is noted within the pelvis. 3. Uncomplicated colonic diverticulosis. 4. Fatty infiltration of the liver. 5. Degenerative changes and scoliosis of the thoracolumbar spine. 6. Bibasilar atelectatic changes Plan Continue PPI IV Protonix N.p.o. Continue conservative treatment NG tube to low intermittent wall suction discontinue when okay with surgery Continue IV hydration Antiemetics and analgesics as per attending Monitor labs hemoglobin and hematocrit every 12 hours General surgery following Supportive care Further recommendations to follow This patient has been seen by myself and Dr. Hope and this note is written on his behalf - Attending Attestation Dr. Hope
--- NOTE | 2018-04-21 16:12 | P.PNGS ---
Subjective Interval history: Feels much better. Increased stoma output. Physical Exam Vital signs: Vital Signs 04/20/18 20:00 04/21/18 00:00 04/21/18 09:18 Temperature 98.1 F 97.9 F 98.4 F Pulse Rate 73 84 97 H Respiratory Rate 22 20 18 Blood Pressure 146/83 H 139/83 145/82 H Pulse Oximetry 95 96 95 04/21/18 12:44 Temperature 98.4 F Pulse Rate 94 H Respiratory Rate 18 Blood Pressure 151/82 H Pulse Oximetry 95 Intake & Output 04/20/18 04/21/18 04/21/18 18:59 06:59 18:59 Intake Total 1305 / 1305 200 / 200 145.2 / 145.2 Output Total 2300 / 2300 5200 / 5200 1800 / 1800 Balance -995 / -995 -5000 / -5000 -1654.8 / -1654.8 Weight 102.8 kg Intake: IV 1305 / 1305 200 / 200 145.2 / 145.2 Protonix Inj 80 MG In NS Inj 200 / 200 100 / 100 95.2 / 95.2 100 ML @ 10 mls/hr IV.CONT Q10H TEE Rx#:[id number] KCl Inj 10 MEQ In NS Inj 1,000 1005 / 1005 ML @ 100 mls/hr IV.CONT .Q10H3M TEE Rx#:[id number] Zosyn 3.375 GM Premix 3.375 gm 100 / 100 100 / 100 50 / 50 In 50 ml @ 100 mls/hr IV.SIG Q6H TEE Rx#:[id number] Oral 0 / 0 Output: Urine 1000 / 1000 200 / 200 Stool Amount (Stoma) 50 / 50 800 / 800 Pre-Hospital: Right Lower 800 / 800 Abdomen Right Lower Abdomen 50 / 50 Gastric Drainage 1250 / 1250 5000 / 5000 1000 / 1000 Right Nare Nasogastric Tube 1250 / 1250 5000 / 5000 1000 / 1000 Other: # Voids 2 Date of Last Bowel Movement 04/20/18 04/20/18 04/21/18 Narrative: NAD Abd: soft, distended, inc c/d/i, stoma maroon with liquid output, ng 1000cc/24h including ice chips Results - Labs 04/21/18 05:41 04/21/18 05:41 Laboratory Results - last 24 hr 04/21/18 04/21/18 05:41 05:41 WBC 12.6 H RBC 4.62 Hgb 13.4 Hct 40.5 MCV 87.8 MCH 29.1 MCHC 33.1 RDW 13.7 Plt Count 287 MPV 9.5 Neut % (Auto) 75.6 H Lymph % (Auto) 13.4 Blount % (Auto) 7.9 Eos % (Auto) 2.3 Baso % (Auto) 0.8 Neut # (Auto) 9.5 H Lymph # (Auto) 1.7 Blount # (Auto) 1.0 H Eos # (Auto) 0.3 Baso # (Auto) 0.1 WBC Differential . Differential Comment Auto diff final Sodium 138 Potassium 3.7 Chloride 103 Carbon Dioxide 26.8 Anion Gap 8 BUN 18 Creatinine 1.18 Estimated GFR 69 L Random Glucose 90 Calcium 8.7 - Imaging Imaging: ITS Impressions Abdomen X-Ray 04/20/18 00:00 CONCLUSION: Persistent dilated small bowel. Ileus or obstruction could've this appearance. Abdomen/Pelvis CT 04/20/18 17:16 CONCLUSION: 1. Multiple fluid filled dilated loops of small bowel are noted suggestive of small bowel obstruction or ileus. Clinical correlation is recommended. 2. Some ascites is noted within the pelvis. 3. Uncomplicated colonic diverticulosis. 4. Fatty infiltration of the liver. 5. Degenerative changes and scoliosis of the thoracolumbar spine. 6. Bibasilar atelectatic changes. Assessment and Plan - Assessment (1) Ileostomy, has currently Code(s): Z93.2 - Ileostomy status Status: Acute (2) Ileus, postoperative Code(s): K91.89 - Other postprocedural complications and disorders of digestive system; K56.7 - Ileus, unspecified Status: Acute - Plan Ileus resolving. Clamp ngt. Start clears. If tolerating clears can advance as tolerated.
--- NOTE | 2018-04-21 17:00 | P.PNWCN ---
Wound Care Nurse Consult Description: Patient seen today for follow up of ostomy teaching, care and support Communicated with: JADYN Vazquez Recommendation: 1. Please empty pouch when 1/3 to 1/2 full. 2. Change ileostomy appliance every 3 to 5 days or as needed if leaking or dislodged 3. If appliance is leaking, please apply new two piece 4 inch cut to fit appliance in place. Do not reinforce leaking appliance with tape. 4. Please include adi within ostomy appliance. 5. please monitor stoma for output and appearance. Bowel Diversion Stoma - Bowel Stoma Right Lower Abdomen Stoma Diameter: 32 (~32) Stoma Appearance: Beefy Red, Protruding, Round Loop Supporting Adi: Yes Collection Device: Two-piece, Cut to Fit Wafer Drainage Description: Liquid, Brown Wafer Size: 4 Inch Cut to Fit 100mm Kelly-Stomal Surrounding Tissue Sensation Description: No Symptoms - Additional Information Additional Information: Patient seen on for ileostomy care, teaching and assessment. Patient is laying in bed with NG tube in place. Patient is drowsy again today and not ready for teaching at this time. Ileostomy stoma was visualized through transparent pouch, and presents as red in color, round and protruding with [address] Emptied ~250 ml of brown liquid output from pouch. Pouch and wafer are dry and intact. Will follow up with patient tomorrow.
[2018-04-21] MEDS: Melatonin 5 MG Tablet PO PRN (21:00)
[2018-04-22] MEDS: Potassium Chloride Inj 10 MEQ in Sod Chloride 0.9% Inj 1,000 ML IV.CONT SCH ×3 (00:04→20:40)
[2018-04-22] MEDS: Morphine Inj 4 MG/ML Vial IV.PUSH PRN (00:11)
[2018-04-22 01:06] LABS: Hematocrit 38.7 % (39.0-51.0)
[2018-04-22] MEDS: Pantoprazole Inj 80 MG in Sodium Chlor 0.9% Inj 100 ML IV.CONT SCH ×3 (02:07→11:14)
[2018-04-22] MEDS: Piperacil/Tazo 3.375 GM Premix 3.375 GM/50 ML PIGGYBACK IV.SIG SCH ×2 (06:08→12:16)
[2018-04-22 12:06] LABS: Hematocrit 38.3 % (39.0-51.0)
--- NOTE | 2018-04-22 13:16 | P.PNIM ---
Subjective Interval history: Patient reports feeling well tolerating liquid diet, colostomy producing stool (reports he has empties the bag 4 times today) Physical Exam Vital signs: Last Vital Signs Temp 97.6 F 04/22/18 12:00 Pulse 83 04/22/18 12:00 Resp 17 04/22/18 12:00 BP 162/95 H 04/22/18 12:00 Pulse Ox 94 L 04/22/18 12:00 Narrative: General: NAD, AAOx3 Chest: CTA Cardiac: Regular Abd: Absent BS, soft mildly distended, ileostomy with some green liquid noted Ext: No edema Results Labs CBC & Chem 7: 04/23/18 10:05 04/23/18 05:03 Assessment and Plan Assessment (1) Nausea & vomiting: Code(s): R11.2 - Nausea with vomiting, unspecified Status: Acute (2) Acute upper gastrointestinal bleeding: Code(s): K92.2 - Gastrointestinal hemorrhage, unspecified Status: Inactive (3) Ileus, postoperative: Code(s): K91.89 - Other postprocedural complications and disorders of digestive system; K56.7 - Ileus, unspecified Status: Acute (4) Ileostomy, has currently: Code(s): Z93.2 - Ileostomy status Status: Acute Plan UGI bleed/?Yashira-Perez tear Nausea/vomiting, post-op ileus s/p Lap diverting ileostomy on 04/17/18 - Pt is a 37 y/o male that recently underwent laparoscopic diverting ileostomy on 04/17/18 for indurated diverticulitis. He was discharged on 04/18/18 and was doing well initially. Then on 04/19/18 he presented to [facility] for nausea, vomiting and abdominal pain. He reported hematemesis as well as blood in his ileostomy bag. He has been unable to tolerate anything by mouth. No bowel movements. He was belching and retching. - CT Abdomen/pelvis (04/19/18) 1. I do not see inflammatory changes in the abdomen. There is mild diverticulosis coli sigmoid colon 2. Colostomy in the right lower quadrant 3. Scattered air-fluid levels most suggestive of an ileus. 4. Large air-fluid level present in the stomach - Abdomen X-Ray (04/19/18) 1. Stable diffuse mild small bowel distention most consistent with adynamic ileus versus partial distal small bowel obstruction. - GI consulted - GS consulted - Patient initially declined NG tube at [facility] but this was able to be placed after transfer to [facility]. Pt initially had out about 800cc of dark coffeground fluid per nursing staff. - Overnight on 04/20 he had out about 200cc of dark fluid and some fluid noted in ileostomy - H/H is stable currently - Chloraseptic spray PRN - Abdomen X-Ray (04/20/18) -->Persistent dilated small bowel. Ileus or obstruction could've this appearance. - Abdomen/Pelvis CT (04/20/18) --> 1. Multiple fluid filled dilated loops of small bowel are noted suggestive of small bowel obstruction or ileus. Clinical correlation is recommended. 2. Some ascites is noted within the pelvis. 3. Uncomplicated colonic diverticulosis. 4. Fatty infiltration of the liver. 5. Degenerative changes and scoliosis of the thoracolumbar spine. 6. Bibasilar atelectatic changes. - Ativan 0.5mg Q6H PRN for anxiety - Discussed minimizing narcotics - NGT removed last night - patient tolerating liquid diet - ostomy with output present - DC Zosyn, advance diet - Supportive care Plan to DC patient home tomorrow if he is able to tolerate diet and remains stable Attending Attestation The exam, history, and the medical decision-making described in the above note were completed with the assistance of the mid-level provider. I reviewed and agree with the findings presented. I attest that I had a [id number] encounter with the patient on the same day, and personally performed and documented my assessment and findings in the medical record. Patient examined. Assessment and plan formulated with Cira Garcia PA-C. I agree with the above. Progress Note: Quality VTE Deep Vein Thrombosis/Pulmonary Embolism Present on Admission: No _ (1) Nausea & vomiting Qualifiers: Vomiting Intractability: Vomiting type:
--- NOTE | 2018-04-22 13:32 | P.PNGS ---
Subjective Interval history: Continues to improve. Debra clears. No n/v. Ileostomy functioning. Physical Exam Vital signs: Vital Signs 04/21/18 17:09 04/21/18 20:00 04/22/18 00:00 Temperature 98.5 F 98.1 F 98.3 F Pulse Rate 93 H 80 82 Respiratory Rate 18 20 20 Blood Pressure 142/87 H 126/69 152/72 H Pulse Oximetry 96 98 98 04/22/18 00:16 04/22/18 08:00 04/22/18 12:00 Temperature 98.5 F 97.6 F Pulse Rate 67 83 Respiratory Rate 20 17 17 Blood Pressure 127/74 162/95 H Pulse Oximetry 96 94 L Intake & Output 04/21/18 04/22/18 04/22/18 18:59 06:59 18:59 Intake Total 195.2 / 195.2 1475 / 1475 1152.2 / 1152.2 Output Total 3625 / 3625 Balance -3429.8 / -3429.8 1475 / 1475 1152.2 / 1152.2 Weight 103 kg Intake: IV 195.2 / 195.2 1155 / 1155 1152.2 / 1152.2 Protonix Inj 80 MG In NS Inj 95.2 / 95.2 100 / 100 97.2 / 97.2 100 ML @ 10 mls/hr IV.CONT Q10H TEE Rx#:[id number] KCl Inj 10 MEQ In NS Inj 1,000 1005 / 1005 1005 / 1005 ML @ 100 mls/hr IV.CONT .Q10H3M TEE Rx#:[id number] Zosyn 3.375 GM Premix 3.375 gm 100 / 100 50 / 50 50 / 50 In 50 ml @ 100 mls/hr IV.SIG Q6H TEE Rx#:[id number] Oral 320 / 320 Output: Urine 375 / 375 Stool Amount (Stoma) 1150 / 1150 Pre-Hospital: Right Lower 1150 / 1150 Abdomen Gastric Drainage 2099 / 2099 Right Nare Nasogastric Tube 2099 Other: # Voids 2 Date of Last Bowel Movement 04/21/18 04/22/18 Narrative: Ileostomy functioning, mod distention Results - Labs 04/22/18 11:12 04/21/18 05:41 Laboratory Results - last 24 hr 04/22/18 04/22/18 00:32 11:12 Hgb 13.0 13.0 Hct 38.7 L 38.3 L - Imaging Imaging: ITS Impressions Abdomen X-Ray 04/20/18 00:00 CONCLUSION: Persistent dilated small bowel. Ileus or obstruction could've this appearance. Abdomen/Pelvis CT 04/20/18 17:16 CONCLUSION: 1. Multiple fluid filled dilated loops of small bowel are noted suggestive of small bowel obstruction or ileus. Clinical correlation is recommended. 2. Some ascites is noted within the pelvis. 3. Uncomplicated colonic diverticulosis. 4. Fatty infiltration of the liver. 5. Degenerative changes and scoliosis of the thoracolumbar spine. 6. Bibasilar atelectatic changes. Assessment and Plan - Assessment (1) Ileostomy, has currently Code(s): Z93.2 - Ileostomy status Status: Acute (2) Ileus, postoperative Code(s): K91.89 - Other postprocedural complications and disorders of digestive system; K56.7 - Ileus, unspecified Status: Acute - Plan Ileus resolving. Advance to soft diet. Stay tonight to be sure he tolerates. D/ w Dr. Pineda.
--- NOTE | 2018-04-22 13:39 | P.PNWCN ---
Wound Care Nurse Consult Description: Patient seen today for follow up of ostomy teaching, care and support Communicated with: Patient, RN Taylor Hernandez Recommendation: 1. Please empty pouch when 1/3 to 1/2 full. 2. Change ileostomy appliance every 3 to 5 days or as needed if leaking or dislodged 3. If appliance is leaking, please apply new two piece 4 inch cut to fit appliance in place. Do not reinforce leaking appliance with tape. 4. Please include adi within ostomy appliance. 5. please monitor stoma for output and appearance. Bowel Diversion Stoma - Bowel Stoma Right Lower Abdomen Stoma Appearance: Dark Red, Protruding (slightly protruding), Round Loop Supporting Adi: Yes Collection Device: Two-piece, Cut to Fit Wafer Drainage Description: Liquid, Brown Wafer Size: 4 Inch Cut to Fit 100mm Stoma Care: Pouch and Wafer Changed Kelly-Stomal Surrounding Tissue Sensation Description: No Symptoms - Additional Information Additional Information: Patient seen today for ileostomy teaching, care and support. Patient is able to ambulate to the bathroom and emptied ileostomy pouch in toilet. Removed 4 inch two piece ostomy appliance in place to reveal minimally protruding stoma that is dark red in color, and round in shape. Stoma measures 32 mm in diameter with 100mm adi in place. Peristomal skin was cleansed with warm water and wash cloths and dried thoroughly. Skin barrier film was applied. New two piece 4 inch ostomy appliance was applied with adaptor. Patient tolerated well and and verbalized understanding of step by step instruction.
--- NOTE | 2018-04-22 14:27 | P.PNGI ---
Subjective Interval history: pt ambulating the hallway, NGT is out tolerating clear liq diet no n/v/d Physical Exam Vital signs: Vital Signs 04/21/18 17:09 04/21/18 20:00 04/22/18 00:00 Temperature 98.5 F 98.1 F 98.3 F Pulse Rate 93 H 80 82 Respiratory Rate 18 20 20 Blood Pressure 142/87 H 126/69 152/72 H Pulse Oximetry 96 98 98 04/22/18 00:16 04/22/18 08:00 04/22/18 12:00 Temperature 98.5 F 97.6 F Pulse Rate 67 83 Respiratory Rate 20 17 17 Blood Pressure 127/74 162/95 H Pulse Oximetry 96 94 L Intake & Output 04/21/18 04/22/18 04/22/18 18:59 06:59 18:59 Intake Total 195.2 / 195.2 1475 / 1475 1152.2 / 1152.2 Output Total 3625 / 3625 Balance -3429.8 / -3429.8 1475 / 1475 1152.2 / 1152.2 Weight 103 kg Intake: IV 195.2 / 195.2 1155 / 1155 1152.2 / 1152.2 Protonix Inj 80 MG In NS Inj 95.2 / 95.2 100 / 100 97.2 / 97.2 100 ML @ 10 mls/hr IV.CONT Q10H TEE Rx#:[id number] KCl Inj 10 MEQ In NS Inj 1,000 1005 / 1005 1005 / 1005 ML @ 100 mls/hr IV.CONT .Q10H3M TEE Rx#:[id number] Zosyn 3.375 GM Premix 3.375 gm 100 / 100 50 / 50 50 / 50 In 50 ml @ 100 mls/hr IV.SIG Q6H TEE Rx#:[id number] Oral 320 / 320 Output: Urine 375 / 375 Stool Amount (Stoma) 1150 / 1150 Pre-Hospital: Right Lower 1150 / 1150 Abdomen Gastric Drainage 2099 / 2099 Right Nare Nasogastric Tube 2099 Other: # Voids 2 Date of Last Bowel Movement 04/21/18 04/22/18 - Constitutional no acute distress - Routine HEENT Exam Head: Present: normocephalic, atraumatic - Routine Neck Exam Present: supple - Routine Respiratory Exam Present: CTA bilaterally - Routine Cardiovascular Exam Present: RRR, S1, S2 - Routine Abdominal Exam Present: soft, normoactive bowel sounds, distended. Absent: tenderness Comments: mild distension, ileostomy functioning - Routine Extremities Exam Present: pulses intact - Routine Skin Exam Present: intact - Routine Neurological Exam Present: alert, oriented X3 Results - Labs CBC & Chem 7: 04/22/18 11:12 04/21/18 05:41 Laboratory Results - last 24 hr 04/22/18 04/22/18 00:32 11:12 Hgb 13.0 13.0 Hct 38.7 L 38.3 L Assessment and Plan (1) Nausea & vomiting Status: Acute Code(s): R11.2 - Nausea with vomiting, unspecified (2) Acute upper gastrointestinal bleeding Status: Inactive Code(s): K92.2 - Gastrointestinal hemorrhage, unspecified (3) Ileus, postoperative Status: Acute Code(s): K91.89 - Other postprocedural complications and disorders of digestive system; K56.7 - Ileus, unspecified (4) Ileostomy, has currently Status: Acute Code(s): Z93.2 - Ileostomy status - Plan 1.Nausea, vomiting and abdominal pain. Status post laparoscopic-assisted diverting ileostomy on 04/17/2018. Imaging suggestive of postoperative ileus. 2. Hematemesis. Most likely Yashira-Perez tear. Hemoglobin 13.0/hematocrit 38.9. 04/21/2018 Post laparoscopic diverting ileostomy on 04/17/2018. Hematemesis No further reports of nausea vomiting. Patient denies any noted bleeding No hematemesis as per bedside nurse. Hemoglobin 13.4 hematocrit 40.5 WBC 12.6 stable 04/20/2018 CT abdomen and pelvis reveal the followin. Multiple fluid filled dilated loops of small bowel are noted suggestive of small bowel obstruction or ileus. Clinical correlation is recommended. 2. Some ascites is noted within the pelvis. 3. Uncomplicated colonic diverticulosis. 4. Fatty infiltration of the liver. 5. Degenerative changes and scoliosis of the thoracolumbar spine. 6. Bibasilar atelectatic changes 04/22/2018 Assessment s/p Lap Ileostomy - postop ileus Hematemesis pt continues to improve with no more active bleeding noted. NO nausea/vomiting over 24 hours. No reports of abdominal pain. Ileostomy is functioning. Pt tolerating clear liquid diet. Labs hgb 13 hct 38.7 Plan clear liq diet ok to dc NGT encourage ambulation - w/c pt has been doing laps around the floor Antiemetics and analgesics as per attending Monitor for active bleeding Monitor Labs General surgery following Supportive care GI will signed off, pt can ff up at the GI office 2 weeks after dc home. pt agrees to ff up. This patient has been seen by myself and Dr. Hope and this note is written on his behalf - Attending Attestation Dr. Hope
--- NOTE | 2018-04-22 15:24 | XR ---
EXAM DATE: 04/22/2018 2:58 PM EST AGE/SEX: 37 years / Male INDICATIONS: Ileus. CLINICAL DATA: This is the patient's subsequent encounter. Patient reports that signs and symptoms h ave been present for 4 - 6 days and indicates a pain score of 2/10. MEDICAL/SURGICAL HISTORY: . Diverticulitis. Irritable bowel syndrome. Renal calculi. Appendecto my. Colostomy. . COMPARISON: C, ABDOMEN 1V KUB, 04/20/2018. . FINDINGS: Air distention of multiple small bowel loops. An ostomy device is seen in the right lower quadrant. The degree of air distention is similar to prior. No pneumoperitoneum. CONCLUSION: 1. Air distention of small bowel loops similar to prior. Diagnostic considerations include a hypodyn amic ileus or partial small bowel obstruction. 2. Ostomy device in the right lower abdominal quadrant. Electronically signed by: Franklyn Moreno MD Board Certified Radiologist 04/22/2018 3:22 PM EST
[2018-04-22] MEDS: Melatonin 5 MG Tablet PO PRN (21:42)
[2018-04-22 23:21] LABS: Hematocrit 38.9 % (39.0-51.0); Hemoglobin 13.1 gm/dL (13.0-17.0)
[2018-04-23 01:49] VITALS: RESP 20
[2018-04-23] MEDS: Morphine Inj 4 MG/ML Vial IV.PUSH PRN ×2 (04:29→09:07)
[2018-04-23] MEDS: Potassium Chloride Inj 10 MEQ in Sod Chloride 0.9% Inj 1,000 ML IV.CONT SCH (05:28)
[2018-04-23 06:20] LABS: Baso % (Auto) 0.3 % (0.0-2.0); Eos # (Auto) 0.2 th/mm3 (0.0-0.4); Eos % (Auto) 1.7 % (0.0-4.0); Hematocrit 36.6 % (39.0-51.0); Hemoglobin 12.4 gm/dL (13.0-17.0); Lymph # (Auto) 1.3 th/mm3 (1.0-4.8); Lymph % (Auto) 10.1 % (9.0-44.0); Mean Corpuscular HGB Conc 33.9 % (32.0-36.0); Mean Corpuscular Hemoglobin 29.8 pg (27.0-34.0); Mean Corpuscular Volume 87.8 fL (80.0-100.0); Mean Platelet Volume 9.5 fL (7.0-11.0); Mono % (Auto) 7.7 % (0.0-8.0); Neut # (Auto) 10.7 th/mm3 (1.8-7.7); Neut % (Auto) 80.2 % (16.0-70.0); Platelet Count 256 th/mm3 (150-450); Red Blood Count 4.17 mil/mm3 (4.50-5.90); Red Cell Distribution Width 13.5 % (11.6-17.2); White Blood Count 13.3 th/mm3 (4.0-11.0)
[2018-04-23 06:48] LABS: Anion Gap 10 meq/L (5-15); Blood Urea Nitrogen 9 mg/dL (7-18); Calcium 7.9 mg/dL (8.5-10.1); Carbon Dioxide 22.1 meq/L (21.0-32.0); Chloride 102 meq/L (98-107); Glomerular Filtration Rate Greater Than 89 mL/min (>89); Glucose,Random 92 mg/dL (74-106); Magnesium 2.4 mg/dL (1.5-2.5); Potassium 3.6 meq/L (3.5-5.1); Sodium 134 meq/L (136-145)
--- NOTE | 2018-04-23 08:10 | P.DS ---
Addendum entered and electronically signed by BRADLY Reddy 12:08: correction: Abd: hypoactive BS, soft mildly distended, ileostomy with stool present Original Note: DS: Providers Date of admission: 04/19/18 10:54 Discharge 04/23/18 Primary care physician: UNKNOWN Consults: 04/19/18 11:53 Consult to Gastroenterology Routine Consulting Provider: Herve Gregg Rubber Gasket Inspector Trimmer:: Herve Gregg Patient known to:: [facility] Reason for Consultation: hematemesis recent diverting ileostomy placement on 04/17 for diverticulitis Notified:: Service Spoke with:: SAJI Date Notified:: 04/19/18 Time Notified:: 11:59 Ordering Provider: ALEX 04/19/18 11:54 Consult to General Surgery Routine Consulting Provider: Adal Gracia Preferred Rubber Gasket Inspector Trimmer:: Adal Gracia Reason for Consultation: GIB, ileus recent diverting ileostomy on 04/17/18 Notified:: Service Spoke with:: ADORE Date Notified:: 04/19/18 Time Notified:: 11:59 Ordering Provider: ALEX 04/22/18 12:14 HUB Only Consult Order Routine Consulting Provider: Jeremy Lutz Brief History from admission: 37-year-old male status post laparoscopic ileostomy 2 days ago for indurated diverticulitis was discharged yesterday. He presented to [facility] today for nausea, vomiting and abdominal pain. He has been unable to tolerate anything by mouth. CT of the abdomen/pelvis indicate scattered air-fluid levels most suggestive of an ileus and large air-fluid level present in the stomach. Patient declined NG tube at [facility]. He reports hematemesis as well as blood in his ileostomy bag. No bowel movements. He is belching and retching. WBC 13.7, hemoglobin 13.0, hematocrit 38.9. No fevers. On exam now appears more comfortable. His abdomen is distended. No bowel sounds are appreciated. Diffuse tenderness to palpation. Right lower quadrant colostomy bag which is empty. Patient did allow NG tube with large amount obtained bloody fluid. Patient also received morphine and starting to feel a little better. In review he was on Zosyn 4 times a day will continue and GI has consulted . DS: Diagnosis Discharge Diagnosis (1) Nausea & vomiting: Status: Acute (2) Acute upper gastrointestinal bleeding: Status: Inactive (3) Ileus, postoperative: Status: Acute (4) Ileostomy, has currently: Status: Acute DS: Summary UGI bleed/?Yashira-Perez tear Nausea/vomiting, post-op ileus s/p Lap diverting ileostomy on 04/17/18 - Pt is a 37 y/o male that recently underwent laparoscopic diverting ileostomy on 04/17/18 for indurated diverticulitis. He was discharged on 04/18/18 and was doing well initially. Then on 04/19/18 he presented to [facility] for nausea, vomiting and abdominal pain. He reported hematemesis as well as blood in his ileostomy bag. He has been unable to tolerate anything by mouth. No bowel movements. He was belching and retching. - CT Abdomen/pelvis (04/19/18) 1. I do not see inflammatory changes in the abdomen. There is mild diverticulosis coli sigmoid colon 2. Colostomy in the right lower quadrant 3. Scattered air-fluid levels most suggestive of an ileus. 4. Large air-fluid level present in the stomach - Abdomen X-Ray (04/19/18) 1. Stable diffuse mild small bowel distention most consistent with adynamic ileus versus partial distal small bowel obstruction. - GI consulted - GS consulted - Patient initially declined NG tube at [facility] but this was able to be placed after transfer to [facility]. Pt initially had out about 800cc of dark coffeground fluid per nursing staff. - Overnight on 04/20 he had out about 200cc of dark fluid and some fluid noted in ileostomy - H/H is stable currently - Chloraseptic spray PRN - Abdomen X-Ray (04/20/18) -->Persistent dilated small bowel. Ileus or obstruction could've this appearance. - Abdomen/Pelvis CT (04/20/18) --> 1. Multiple fluid filled dilated loops of small bowel are noted suggestive of small bowel obstruction or ileus. Clinical correlation is recommended. 2. Some ascites is noted within the pelvis. 3. Uncomplicated colonic diverticulosis. 4. Fatty infiltration of the liver. 5. Degenerative changes and scoliosis of the thoracolumbar spine. 6. Bibasilar atelectatic changes. - Abdomen X-Ray 04/22/18 1. Air distention of small bowel loops similar to prior. Diagnostic considerations include a hypodynamic ileus or partial small bowel obstruction. 2. Ostomy device in the right lower abdominal quadrant. - patient tolerating diet passing stool and amy from pstomy - patient cleared for DC per general surgery - Ativan 0.5mg Q6H PRN for anxiety - Discussed minimizing narcotics - NGT removed 04/21 - patient tolerating soft diet - ostomy with output present - GS cleared for DC - GI signed off - DC Zosyn, advance diet - WBC count 04/23 noted, patient afebrile. Repeat CBC on Friday with results to PCP Dr. Fong and Dr. Livingston - Supportive care Attending Attestation: The exam, history, and the medical decision-making described in the above note were completed with the assistance of the mid-level provider. I reviewed and agree with the findings presented. I attest that I had a [id number] encounter with the patient on the same day, and personally performed and documented my assessment and findings in the medical record. Patient examined. Assessment and plan formulated with Cira Garcia PA-C. I agree with the above. Time spent discussing smoking cessation with patient: more than 10 minutes Time Spent with Patient Total time spent providing and/or coordinating discharge services: Quality: VTE Deep Vein Thrombosis/Pulmonary Embolism Present on Admission: No Exam Narrative Exam Narrative: General: NAD, AAOx3 Chest: CTA Cardiac: Regular Abd: Absent BS, soft mildly distended, ileostomy with stool present Ext: No edema Results Labs on day of discharge: Labs from last 24 hours 04/23/18 04/23/18 04/22/18 05:03 05:03 22:50 WBC 13.3 H RBC 4.17 L Hgb 12.4 L 13.1 Hct 36.6 L 38.9 L MCV 87.8 MCH 29.8 MCHC 33.9 RDW 13.5 Plt Count 256 MPV 9.5 Neut % (Auto) 80.2 H Lymph % (Auto) 10.1 [place] % (Auto) 7.7 Eos % (Auto) 1.7 Baso % (Auto) 0.3 Neut # (Auto) 10.7 H Lymph # (Auto) 1.3 [place] # (Auto) 1.0 H Eos # (Auto) 0.2 Baso # (Auto) 0.0 WBC Differential . Differential Comment Auto diff final Sodium 134 L Potassium 3.6 Chloride 102 Carbon Dioxide 22.1 Anion Gap 10 BUN 9 Creatinine 0.81 Estimated GFR Greater than 89 Random Glucose 92 Calcium 7.9 L D Magnesium 2.4 04/22/18 11:12 WBC RBC Hgb 13.0 Hct 38.3 L MCV MCH MCHC RDW Plt Count MPV Neut % (Auto) Lymph % (Auto) [place] % (Auto) Eos % (Auto) Baso % (Auto) Neut # (Auto) Lymph # (Auto) [place] # (Auto) Eos # (Auto) Baso # (Auto) WBC Differential Differential Comment Sodium Potassium Chloride Carbon Dioxide Anion Gap BUN Creatinine Estimated GFR Random Glucose Calcium Magnesium Impressions ITS Impressions Abdomen/Pelvis CT 04/20/18 17:16 CONCLUSION: 1. Multiple fluid filled dilated loops of small bowel are noted suggestive of small bowel obstruction or ileus. Clinical correlation is recommended. 2. Some ascites is noted within the pelvis. 3. Uncomplicated colonic diverticulosis. 4. Fatty infiltration of the liver. 5. Degenerative changes and scoliosis of the thoracolumbar spine. 6. Bibasilar atelectatic changes. Abdomen X-Ray 04/22/18 00:00 CONCLUSION: 1. Air distention of small bowel loops similar to prior. Diagnostic considerations include a hypodynamic ileus or partial small bowel obstruction. 2. Ostomy device in the right lower abdominal quadrant. Discharge Plan Discharge Disposition Patient Disposition: W/Home Health Service Discharge Condition Condition: Stable Discharge Order Discharge Orders: Discharge Order (Routine); Ordered 04/23/18 Ordered By: Cira Garcia Discharge Details Anticipated Discharge Date: 04/23/18 Physicians Team Primary Care Provider: UNKNOWN, Attending Provider: Ziggy Pineda Other Providers: Adal Gracia ; Rene Otero ; Ziggy Pineda ; Herve Gregg ; Pierre Livingston ; [place] ; [facility] Rxs /Orders / Referrals /Forms Prescriptions: Continue pantoprazole [Protonix] 40 mg Tablet,Delayed Release (Dr/Ec) 40 mg PO DAILY RF: 0 varenicline [Chantix] 0.5 mg Tablet 0.5 mg PO BID RF: 0 metronidazole 500 mg Tablet 500 mg PO Q8HR Qty: 21 RF: 0 ciprofloxacin HCl 500 mg Tablet 500 mg PO Q12HR Qty: 14 RF: 0 ketorolac 10 mg Tablet 10 mg PO Q6H PRN (Reason: Pain) Qty: 20 RF: 0 hydrocodone-acetaminophen 5-325 mg Tablet 1 - 2 tab PO Q4H PRN (Reason: Pain) Qty: 20 RF: 0 Referrals: Pierre Livingston MD [GENERAL SURGERY] - See Instructions (follow up with Dr. Livingston in 2 weeks Please call to schedule follow up appointment ) Herve Gregg MD [Physician] - 05/08/18 10:30 am (follow up in 2 weeks) UNKNOWN, [Primary Care Provider] - 04/27/18 12:30 pm (follow up with PCP in [address] Lyndsey Fong [address] [place] [id number] [phone] ) Discharge Instructions Patient Printed Instructions: Diverticulitis (GEN) Additional Instructions: Soft diet. Follow up with general surgery in 2 week, call for appointment. Follow up with gastroenterology in 2 weeks, call for appointment. Follow up with primary care in a week. Return with any acute changes. Post Discharge Care Plan Care Plan Goals: Your Health Problems: Goals to Promote Your Health: * To prevent worsening of your condition * To maintain your health at the optimal level Directions to Meet Your Goals: * Take your medications as prescribed * Follow your dietary instruction * Follow activity as directed * Keep your appointments as scheduled * Take your immunizations and boosters as scheduled * If your symptoms worsen call your PCP * If no PCP go to Urgent Care or Emergency Room Smoking is dangerous to your health. Avoid second hand smoke. You may reach the 24-hour crisis hotline for domestic abuse at . Status ED Status: Admitted Patient Discharge Information Discharge Date/Time: 04/23/18 13:09
[2018-04-23 08:59] VITALS: BP 145/80; PULSE 81; TEMP 98; O2SAT 98
[2018-04-23 10:24] LABS: Hematocrit 38.6 % (39.0-51.0)
--- NOTE | 2018-04-23 11:46 | P.PNWCN ---
Wound Care Nurse Consult Description: Patient seen today for follow up of ostomy teaching, care and support Communicated with: RN Bethany arauz Recommendation: 1. Please empty pouch when 1/3 to 1/2 full. 2. Change ileostomy appliance every 3 to 5 days or as needed if leaking or dislodged 3. If appliance is leaking, please apply new two piece 4 inch cut to fit appliance in place. Do not reinforce leaking appliance with tape. 4. please monitor stoma for output and appearance. Bowel Diversion Stoma - Bowel Stoma Right Lower Abdomen Stoma Diameter: 32 (mm) Stoma Appearance: Dark Red Loop Supporting Adi: No Collection Device: Two-piece, Cut to Fit Wafer Drainage Description: Liquid, Brown Wafer Size: 4 Inch Cut to Fit 100mm - Additional Information Additional Information: Patient seen for follow up of ostomy teaching, care and support for new ileostomy. Patient is sitting in chair upon writer producer's arrival. Spoke with patient regarding when to empty and change ostomy appliance. Patient has stoma that is visible through transparent pouch and stoma presents as minimally protruding, round, dark red in color, and measuring ~1 1/4 inches or 32 mm in diameter. Adi was removed today per patient by Doctor Miki. Rx is in chart for ostomy supplies. Starter kit has been ordered for patient.
--- NOTE | 2018-04-23 12:54 | P.DCO ---
Diagnosis (1) Nausea & vomiting: Status: Acute (2) Acute upper gastrointestinal bleeding: Status: Inactive (3) Ileus, postoperative: Status: Acute (4) Ileostomy, has currently: Status: Acute Home Health Nursing Order: Medical education, Signs/symptoms of disease process, Medication education-adverse effect and Nursing assessment with vital signs Instructions: New ostomy Ostomy teaching Case Management Consult Case Management Consult-Home Health: Yes I have seen patient Thad Bland on 04/23/18. My clinical findings support the need for the requested home health care services because: Limited ability to care for self I certify that my clinical findings support that this patient is homebound because: Post-op weakness _ (1) Nausea & vomiting Qualifiers: Vomiting Intractability: Vomiting type:
== END 2018-04-23 13:09 | disposition home health service (06) | DRG 388 ==
LOC: NEDDLT 04:53 → NEPHCDU 10:54 → N07 15:27
PROVIDERS: ADMIT Hospitalist; ATTEND Hospitalist
DX: K22.6 Gastro-esophageal laceration-hemorrhage syndrome; K92.0 Hematemesis; R18.8 Other ascites; K57.32 Diverticulitis of large intestine without perforation or abscess without bleeding; F17.210 Nicotine dependence, cigarettes, uncomplicated; F41.9 Anxiety disorder, unspecified; Z93.2 Ileostomy status; Z82.49 Family history of ischemic heart disease and other diseases of the circulatory system; Z87.442 Personal history of urinary calculi; K58.9 Irritable bowel syndrome, unspecified; K56.7 Ileus, unspecified; K76.0 Fatty (change of) liver, not elsewhere classified; M41.9 Scoliosis, unspecified; J44.9 Chronic obstructive pulmonary disease, unspecified
CPT/HCPCS: 74000; 74018; 74176; 80048; 80053; 81001; 83690; 83735; 85014; 85018; 85025; 85610; 85730; 90761; 90765; 90766; 90767; 90775; 90776; 96361; 96365; 96366; 96367; 96375; 96376; 99291; C9113; J2060; J2270; J2405; J2543; J2765; J3480; J7030